=== PATIENT | female | born 1950 | race African-American/Black ===

== ENCOUNTER 2016-05-29 16:40 | Inpatient (IN) | payer BC ==
[~2016-05-29] VITALS: Ht 165.1 cm; Wt 61.2 kg
[~2016-05-29 16:40] MED LIST: AMLODIPINE BESY10 MG ORAL; AMMONIA; ASPIR 8181 MG ORAL; CATAPRES0.1 MG ORAL; CIPRO500 MG PO; DOCUSATE SODIU100 MG ORAL; FLAGYL500 MG ORAL; IRON18 M1 PO; KEPPRA500 MG ORAL; LACTULOSE10 GM/154 PO; LACTULOSE10 GM/155 PO; LEVETIRACETAM500 MG ORAL; LEVOFLOXACIN500 MG ORAL; NITROSTAT0.4 M1 SL; SUCRALFATE1 GM ORAL; TEMAZEPAM15 MG ORAL; XIFAXAN550 MG ORAL; ZANTAC150 MG ORAL; ZOFRAN4 M3 ORAL
[2016-05-29 18:00] VITALS: BP 148/72
[2016-05-29 18:25] LABS: MEAN CORPUSCULAR HEMOGLOBIN 38.8 PG (27.0-31.0); MEAN CORPUSCULAR HGB CONC 33.2 G/DL (32.0-36.0); MEAN CORPUSCULAR VOLUME 117 FL (80-99); MEAN PLATELET VOLUME 12.5 FL (6.5-10.1); PLATELET COUNT 10 K/UL (150-450); RED BLOOD COUNT 1.66 M/UL (4.20-5.40); WHITE BLOOD COUNT 3.6 K/UL (4.8-10.8)
[2016-05-29 18:35] LABS: INR 1.1 (0.9-1.1); PROTHROMBIN TIME 11.4 SEC (9.30-11.50)
[2016-05-29 18:36] LABS: TROPONIN I < 0.30 ng/mL (<=0.30)
[2016-05-29 18:59] LABS: ALANINE AMINOTRANSFERASE 18 U/L (3-33); ALBUMIN/GLOBULIN RATIO 1.1 (1.0-2.7); ANION GAP 19 (5-15); ASPARTATE AMINO TRANSFERASE 31 U/L (5-40); CALCIUM 9.2 mg/dL (8.6-10.2); CARBON DIOXIDE 22 mEQ/L (20-30); CHLORIDE 97 mEQ/L (98-107); CREATININE 0.9 mg/dL (0.5-0.9); GLOMERULAR FILTRATION RATE > 60 mL/min (>60); HEMOLYSIS 8; POTASSIUM 3.9 mEQ/L (3.4-4.9); SODIUM 138 mEQ/L (135-145); TOTAL PROTEIN 7.3 g/dL (6.6-8.7)
[2016-05-29 20:33] LABS: LYMPHOCYTES % (MANUAL) 78 % (20-45); NEUTROPHILS % (MANUAL) 20 % (45-75); TOTAL CELLS COUNTED 100
[2016-05-29 20:34] LABS: ANISOCYTOSIS 2+; MACROCYTES 2+; POLYCHROMASIA 1+
[2016-05-29 20:38] LABS: BAND NEUTROPHILS % (MANUAL) 0 % (0-8); BASOPHILS % (MANUAL) 0 % (0-2); EOSINOPHILS % (MANUAL) 0 % (0-3); PLATELET ESTIMATE DECREASED
[2016-05-29] MEDS ORDERED: LORazepam Inj 2mg/ml 1ml IV PRN (22:00)
[2016-05-29] MEDS ORDERED: Miralax 17gm pkt ORAL PRN (22:00)
[2016-05-29] MEDS ORDERED: Mylanta II UD 30ml ORAL PRN (22:00)
[2016-05-29] MEDS ORDERED: Zolpidem 5mg tab ORAL PRN (22:00)
--- NOTE | 2016-05-29 22:07 | Emergency Room Report ---
History of Present Illness General Chief Complaint: General Complaint Source: Patient Present Illness HPI 66-year-old female presents to ED for evaluation. Patient referred here by oncologist Dr. Up for pancytopenia. Patient is being treated for breast cancer with chemotherapy. Patient had blood work done today at the office which stated that she is pancytopenia. Patient states she feels okay. Denies any fevers or chills. Denies any weakness. No other aggravating or relieving factors. Denies any other associated symptoms Allergies: Coded Allergies: CITRUS AND DERIVATIVES (Verified Allergy, Intermediate, Hives, 07/18/15) Patient History Past Medical History: HTN, CVA/TIA, other - breast ca Past Surgical History: none Pertinent Family History: none Social History: Denies: alcohol use, drug use, smoking Now: No Immunizations: UTD Reviewed Nursing Documentation: PMH: Agreed, PSxH: Agreed Nursing Documentation-PMH Hx Cardiac Problems: Yes Hx Hypertension: Yes Hx Pacemaker: No Hx Asthma: No Hx COPD: No Hx Diabetes: No Hx Cancer: Yes - breast Hx Gastrointestinal Problems: No Hx Dialysis: No Hx Neurological Problems: Yes Hx Cerebrovascular Accident: Yes - 2014 Hx Seizures: Yes Hx Headaches: Yes Review of Systems All Other Systems: negative except mentioned in HPI Physical Exam Vital Signs Date Time Temp Pulse Resp B/P Pulse Ox O2 Delivery O2 Flow Rate FiO2 05/29/16 16:54 98.4 87 14 148/72 100 Sp02 EP Interpretation: reviewed, normal General Appearance: no apparent distress, alert, GCS 15, non-toxic Head: normocephalic, atraumatic Eyes: bilateral eye PERRL, bilateral eye normal inspection ENT: hearing grossly normal, normal pharynx, no angioedema, normal voice Neck: full range of motion, supple/symm/no masses Respiratory: chest non-tender, lungs clear, normal breath sounds, speaking full sentences Cardiovascular #1: regular rate, rhythm, no edema Cardiovascular #2: 2+ carotid (R), 2+ carotid (L), 2+ radial (R), 2+ radial (L) , 2+ dorsalis pedis (R), 2+ dorsalis pedis (L) Gastrointestinal: normal bowel sounds, non tender, soft, non-distended, no guarding, no rebound Rectal: deferred Genitourinary: normal inspection, no CVA tenderness Musculoskeletal: back normal, gait/station normal, normal range of motion, non- tender Neurologic: alert, oriented x3, responsive, motor strength/tone normal, sensory intact, speech normal Psychiatric: judgement/insight normal, memory normal, mood/affect normal, no suicidal/homicidal ideation Reflexes: 3+ bicep (R), 3+ bicep (L), 3+ tricep (R), 3+ tricep (L), 3+ knee (R) , 3+ knee (L) Skin: normal color, no rash, warm/dry, well hydrated Lymphatic: no adenopathy Medical Decision Making Diagnostic Impression: Primary Impression: Pancytopenia due to antineoplastic chemotherapy Additional Impression: Breast cancer Qualified Codes: C50.919 - Malignant neoplasm of unspecified site of unspecified female breast ER Course Hospital Course 66-year-old female presents to ED for evaluation. Lab work from oncologist shows pancytopenia Differential diagnoses include: anemia requiring transfusion, microcytic anemia , macrocytic anemia, heavy blood loss Clinical course Patient placed on stretcher. After initial history and physical I ordered labs including CBC and type and screen. Labs- WBC 3.6, hemoglobin/hematocrit 6.4/19.4, platelets 10. Electrolytes okay , no leukocytosis No signs of bleeding. Patient is awake alert oriented x3. Vital stable I ordered PRBCs and platelet transfusions. Case discussed with PMD Dr. Nash and will be admitted. Dr Up will consult Diagnosis - pancytopenia Admitted to floor in serious condition Labs Test 05/29/16 17:40 White Blood Count 3.6 K/UL (4.8-10.8) Red Blood Count 1.66 M/UL (4.20-5.40) Hemoglobin 6.4 G/DL (12.0-16.0) Hematocrit 19.4 % (37.0-47.0) Mean Corpuscular Volume 117 FL (80-99) Mean Corpuscular Hemoglobin 38.8 PG (27.0-31.0) Mean Corpuscular Hemoglobin Concent 33.2 G/DL (32.0-36.0) Red Cell Distribution Width 15.0 % (11.6-14.8) Platelet Count 10 K/UL (150-450) Mean Platelet Volume 12.5 FL (6.5-10.1) Neutrophils (%) (Auto) % (45.0-75.0) Lymphocytes (%) (Auto) % (20.0-45.0) Monocytes (%) (Auto) % (1.0-10.0) Eosinophils (%) (Auto) % (0.0-3.0) Basophils (%) (Auto) % (0.0-2.0) Differential Total Cells Counted 100 Neutrophils % (Manual) 20 % (45-75) Lymphocytes % (Manual) 78 % (20-45) Monocytes % (Manual) 2 % (1-10) Eosinophils % (Manual) 0 % (0-3) Basophils % (Manual) 0 % (0-2) Band Neutrophils 0 % (0-8) Platelet Estimate Decreased Platelet Morphology Giant Platelets Occasional Polychromasia 1+ Anisocytosis 2+ Macrocytosis 2+ Prothrombin Time 11.4 SEC (9.30-11.50) Prothromb Time International Ratio 1.1 (0.9-1.1) Activated Partial Thromboplast Time 31 SEC (23-33) Sodium Level 138 mEQ/L (135-145) Potassium Level 3.9 mEQ/L (3.4-4.9) Chloride Level 97 mEQ/L (98-107) Carbon Dioxide Level 22 mEQ/L (20-30) Anion Gap 19 (5-15) Blood Urea Nitrogen 12 mg/dL (7-23) Creatinine 0.9 mg/dL (0.5-0.9) Estimat Glomerular Filtration Rate > 60 mL/min (>60) Glucose Level 159 mg/dL (74-106) Calcium Level 9.2 mg/dL (8.6-10.2) Total Bilirubin 0.4 mg/dL (0.0-1.2) Aspartate Amino Transf (AST/SGOT) 31 U/L (5-40) Alanine Aminotransferase (ALT/SGPT) 18 U/L (3-33) Alkaline Phosphatase 49 U/L (35-104) Troponin I < 0.30 ng/mL (<=0.30) Total Protein 7.3 g/dL (6.6-8.7) Albumin 3.9 g/dL (3.5-5.2) Globulin 3.4 g/dL Albumin/Globulin Ratio 1.1 (1.0-2.7) Last Vital Signs Date Time Temp Pulse Resp B/P Pulse Ox O2 Delivery O2 Flow Rate FiO2 05/29/16 18:00 98.4 87 14 148/72 100 Status: improved Disposition: ADMITTED INPATIENT Condition: Serious Referrals: ARABELLA [facility],REFERRING (PCP) ARLETH LINDO M.D. May 29, 2016 22:07
[2016-05-29 22:15] VITALS: BP 165/71
[2016-05-29 22:30] VITALS: BP 171/74
[2016-05-29 23:30] VITALS: BP 149/75
[2016-05-29 23:48] VITALS: BP 149/75
[2016-05-30 04:00] VITALS: BP 161/82
[2016-05-30 08:00] VITALS: BP 155/87
[2016-05-30 11:59] VITALS: BP 155/78
[2016-05-30 12:16] LABS: MEAN CORPUSCULAR HEMOGLOBIN 37.1 PG (27.0-31.0); MEAN CORPUSCULAR HGB CONC 36.3 G/DL (32.0-36.0); MEAN CORPUSCULAR VOLUME 102 FL (80-99); MEAN PLATELET VOLUME 14.8 FL (6.5-10.1); RED BLOOD COUNT 2.28 M/UL (4.20-5.40); RED CELL DISTRIBUTION WIDTH 18.4 % (11.6-14.8); WHITE BLOOD COUNT 5.6 K/UL (4.8-10.8)
[2016-05-30 12:18] LABS: PLATELET COUNT 6 K/UL (150-450)
[2016-05-30 12:19] LABS: INR 1.1 (0.9-1.1); PROTHROMBIN TIME 11.5 SEC (9.30-11.50)
[2016-05-30 12:25] LABS: ALANINE AMINOTRANSFERASE 15 U/L (3-33); ALBUMIN/GLOBULIN RATIO 1.1 (1.0-2.7); ANION GAP 11 (5-15); ASPARTATE AMINO TRANSFERASE 26 U/L (5-40); CARBON DIOXIDE 27 mEQ/L (20-30); CHLORIDE 102 mEQ/L (98-107); CREATININE 0.7 mg/dL (0.5-0.9); GLOMERULAR FILTRATION RATE > 60 mL/min (>60); LACTATE DEHYDROGENASE 341 U/L (135-230); POTASSIUM 3.9 mEQ/L (3.4-4.9); SODIUM 140 mEQ/L (135-145); TOTAL PROTEIN 6.4 g/dL (6.6-8.7)
[2016-05-30 12:47] LABS: BILIRUBIN,DIRECT 0.2 mg/dL (0.1-0.3)
[2016-05-30 12:54] LABS: HEMOLYSIS 10; IRON 275 ug/dL (37-145)
[2016-05-30 13:34] LABS: ERYTHROCYTE SEDIMENTATION RATE 69 MM/HR (0-30)
[2016-05-30 13:52] LABS: ANISOCYTOSIS 1+; BAND NEUTROPHILS % (MANUAL) 4 % (0-8); BASOPHILS % (MANUAL) 0 % (0-2); EOSINOPHILS % (MANUAL) 0 % (0-3); LYMPHOCYTES % (MANUAL) 23 % (20-45); MACROCYTES 1+; NEUTROPHILS % (MANUAL) 70 % (45-75); PLATELET ESTIMATE DECREASED; TOTAL CELLS COUNTED 100
[2016-05-30 13:53] LABS: HYPOCHROMASIA 1+; PLATELET MORPHOLOGY NORMAL
[2016-05-30 14:06] LABS: PATH BLOOD SMEAR/OMC SENT TO PATHOLOGIST; RETICULOCYTE COUNT 0.2 % (0.0-2.0)
[2016-05-30 16:00] VITALS: BP 156/82
[2016-05-30] MEDS: Morphine Sulfate 2mg/ml Inj IVP PRN (16:27)
--- NOTE | 2016-05-30 17:15 | History and Physical ---
History of Present Illness General Date patient seen: May 30, 2016 Reason for Hospitalization: General Complaint Present Illness HPI 66 yo female with pmhx TIA/CVA and breast cancer on chemotherapy, presenting to [facility] ER with complaints of severe weakness. 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 Patient has been admitted to the hospital and PRBC transfusion is on standby if the patients hematocrit drops lower than 8 g/dL. Allergies: Coded Allergies: CITRUS AND DERIVATIVES (Verified Allergy, Intermediate, Hives, 07/18/15) Medication History Scheduled Amlodipine Besylate* (Amlodipine Besylate*), 10 MG ORAL DAILY, (Reported) Aspirin* (Aspir 81*), 81 MG ORAL DAILY, (Reported) Clonidine Hcl* (Catapres*), 0.1 MG ORAL DAILY, (Reported) Levetiracetam* (Levetiracetam*), 500 MG ORAL TWICE A DAY, (Reported) Sucralfate* (Carafate*), 1 GM ORAL TID, (Reported) Patient History Healthcare decision maker Resuscitation status Full Code Advanced Directive on File No Past Medical/Surgical History Past Medical/Surgical History: (1) Head injury, acute (2) Laceration of hand (3) Colon polyps (4) Elevated LFTs (5) Seizure disorder (6) Breast cancer (7) Pancytopenia due to antineoplastic chemotherapy (8) Multiple injuries due to trauma (9) Anemia (10) Seizure Review of Systems Constitutional: Reports: malaise, weakness Skin: Reports: dryness Physical Exam General Appearance: no apparent distress Lines, tubes and drains: peripheral HEENT: normocephalic, atraumatic, anicteric, PERRL Neck: non-tender, normal alignment, supple Respiratory/Chest: chest wall non-tender, lungs clear, normal breath sounds, no respiratory distress Breasts: no masses Cardiovascular/Chest: normal peripheral pulses, normal rate, regular rhythm, no JVD Abdomen: normal bowel sounds, non tender, soft, no organomegaly Genitourinary/Rectal: normal genital exam, normal rectal exam Extremities: normal range of motion, non-tender, normal inspection, no calf tenderness Skin Exam: palled 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, responsive, motor weakness, disoriented Last 24 Hour Vital Signs Date Time Temp Pulse Resp B/P Pulse Ox O2 Delivery O2 Flow Rate FiO2 05/30/16 16:00 98.1 92 17 156/82 96 Room Air 05/30/16 11:59 97.7 87 19 155/78 98 Room Air 05/30/16 08:00 98.1 85 19 155/87 97 Room Air 05/30/16 04:00 98.4 93 18 161/82 98 Room Air 05/29/16 23:49 94 20 149/75 100 Room Air 05/29/16 23:48 97.3 94 20 149/75 100 Room Air 05/29/16 23:30 97.3 94 20 149/75 100 Room Air 05/29/16 22:30 98.2 85 16 171/74 100 Room Air 05/29/16 22:15 98.1 84 19 165/71 95 Room Air 05/29/16 18:00 98.4 87 14 148/72 100 Intake and Output 05/29/16 05/30/16 19:00 07:00 Intake Total 560 ml Balance 560 ml Intake Oral 210 ml Blood Product 250 ml Other 100 ml # Voids 2 Laboratory Tests Test 05/29/16 17:40 05/30/16 11:35 White Blood Count 3.6 K/UL (4.8-10.8) L 5.6 K/UL (4.8-10.8) # Red Blood Count 1.66 M/UL (4.20-5.40) L 2.28 M/UL (4.20-5.40) L Hemoglobin 6.4 G/DL (12.0-16.0) *L 8.5 G/DL (12.0-16.0) #L Hematocrit 19.4 % (37.0-47.0) L 23.3 % (37.0-47.0) L Mean Corpuscular Volume 117 FL (80-99) H 102 FL (80-99) #H Mean Corpuscular Hemoglobin 38.8 PG (27.0-31.0) H 37.1 PG (27.0-31.0) H Mean Corpuscular Hemoglobin Concent 33.2 G/DL (32.0-36.0) 36.3 G/DL (32.0-36.0) H Red Cell Distribution Width 15.0 % (11.6-14.8) H 18.4 % (11.6-14.8) H Platelet Count 10 K/UL (150-450) L 6 K/UL (150-450) *L Mean Platelet Volume 12.5 FL (6.5-10.1) H 14.8 FL (6.5-10.1) H Neutrophils (%) (Auto) % (45.0-75.0) % (45.0-75.0) Lymphocytes (%) (Auto) % (20.0-45.0) % (20.0-45.0) Monocytes (%) (Auto) % (1.0-10.0) % (1.0-10.0) Eosinophils (%) (Auto) % (0.0-3.0) % (0.0-3.0) Basophils (%) (Auto) % (0.0-2.0) % (0.0-2.0) Differential Total Cells Counted 100 100 Neutrophils % (Manual) 20 % (45-75) L 70 % (45-75) Lymphocytes % (Manual) 78 % (20-45) H 23 % (20-45) Monocytes % (Manual) 2 % (1-10) 3 % (1-10) Eosinophils % (Manual) 0 % (0-3) 0 % (0-3) Basophils % (Manual) 0 % (0-2) 0 % (0-2) Band Neutrophils 0 % (0-8) 4 % (0-8) Platelet Estimate Decreased L Decreased L Platelet Morphology Normal Giant Platelets Occasional Polychromasia 1+ Anisocytosis 2+ 1+ Macrocytosis 2+ 1+ Prothrombin Time 11.4 SEC (9.30-11.50) 11.5 SEC (9.30-11.50) Prothromb Time International Ratio 1.1 (0.9-1.1) 1.1 (0.9-1.1) Activated Partial Thromboplast Time 31 SEC (23-33) 23 SEC (23-33) Sodium Level 138 mEQ/L (135-145) 140 mEQ/L (135-145) Potassium Level 3.9 mEQ/L (3.4-4.9) 3.9 mEQ/L (3.4-4.9) Chloride Level 97 mEQ/L (98-107) L 102 mEQ/L (98-107) Carbon Dioxide Level 22 mEQ/L (20-30) 27 mEQ/L (20-30) Anion Gap 19 (5-15) H 11 (5-15) Blood Urea Nitrogen 12 mg/dL (7-23) 7 mg/dL (7-23) Creatinine 0.9 mg/dL (0.5-0.9) 0.7 mg/dL (0.5-0.9) Estimat Glomerular Filtration Rate > 60 mL/min (>60) > 60 mL/min (>60) Glucose Level 159 mg/dL (74-106) H 122 mg/dL (74-106) H Calcium Level 9.2 mg/dL (8.6-10.2) 9.0 mg/dL (8.6-10.2) Total Bilirubin 0.4 mg/dL (0.0-1.2) 1.1 mg/dL (0.0-1.2) Aspartate Amino Transf (AST/SGOT) 31 U/L (5-40) 26 U/L (5-40) Alanine Aminotransferase (ALT/SGPT) 18 U/L (3-33) 15 U/L (3-33) Alkaline Phosphatase 49 U/L (35-104) 49 U/L (35-104) Troponin I < 0.30 ng/mL (<=0.30) Total Protein 7.3 g/dL (6.6-8.7) 6.4 g/dL (6.6-8.7) L Albumin 3.9 g/dL (3.5-5.2) 3.4 g/dL (3.5-5.2) L Globulin 3.4 g/dL 3.0 g/dL Albumin/Globulin Ratio 1.1 (1.0-2.7) 1.1 (1.0-2.7) Hypochromasia 1+ Erythrocyte Sedimentation Rate 69 MM/HR (0-30) H Reticulocyte Count 0.2 % (0.0-2.0) Iron Level 275 ug/dL (37-145) H Total Iron Binding Capacity ug/dL (250-400) Percent Iron Saturation % (15-50) Unsaturated Iron Binding ug/dL (112-346) Direct Bilirubin 0.2 mg/dL (0.1-0.3) Lactate Dehydrogenase 341 U/L (135-230) H Carcinoembryonic Antigen 2.7 ng/mL Vitamin B12 Level 775 pg/mL (211-946) Folate Pending Thyroid Stimulating Hormone (TSH) 1.880 uIU/mL (0.300-4.500) Height (Feet): 5 Height (Inches): 5.00 Weight (Pounds): 135 Medications Current Medications Medications (Trade) Dose Ordered Sig/Rancho Route PRN Reason Start Time Stop Time Status Last Admin Dose Admin Acetaminophen (Tylenol) 650 mg Q4H PRN ORAL fever 05/29/16 22:00 06/28/16 21:59 Al Hydroxide/Mg Hydroxide (Mylanta II) 30 ml Q6H PRN ORAL dyspepsia 05/29/16 22:00 06/28/16 21:59 Dextrose (Dextrose 50%) STAT PRN IV Hypoglycemia 05/29/16 22:00 06/28/16 21:59 Lorazepam (Ativan 2mg/ml 1ml) 0.5 mg Q4H PRN IV For Anxiety 05/29/16 22:00 06/05/16 21:59 Morphine Sulfate (Morphine Sulfate) 1 mg Q4H PRN IVP For Pain 05/29/16 22:00 06/05/16 21:59 05/30/16 16:27 Ondansetron HCl (Zofran) 4 mg Q6H PRN IVP Nausea & Vomiting 05/29/16 22:00 06/28/16 21:59 Polyethylene Glycol (Miralax) 17 gm HSPRN PRN ORAL Constipation 05/29/16 22:00 06/28/16 21:59 Zolpidem Tartrate (Ambien) 5 mg HSPRN PRN ORAL Insomnia 05/29/16 22:00 06/28/16 21:59 Assessment/Plan Status: stable, progressing Assessment/Plan Assessment/Plan Assessment/Plan ASSESSMENT pancytopenia 2 to chemotherapy metastatic breast cancer, on chemotherapy s/p 2 u PRBC transfusion HTN Hx of CVA seizure disorder PLAN OF CARE s/p 2 u PRBC Monitor platelets and H/H Hematology rdquested anemia workup with high iron and ferritin, normal B 12 and folate TSH DELLA SNELL May 30, 2016 17:15
[2016-05-30] MEDS ORDERED: Tubing Blood Filter IV ONE (17:26)
[2016-05-30] MEDS ORDERED: NS 275ml ONE (17:26)
[2016-05-30 20:00] VITALS: BP 155/76
[2016-05-31] VITALS: BP 158/80
[2016-05-31] MEDS: Morphine Sulfate 2mg/ml Inj IVP PRN (00:09)
[2016-05-31 04:00] VITALS: BP 142/73
--- NOTE | 2016-05-31 06:57 | Consultation ---
DATE OF CONSULTATION: 05/30/2016 NOTE: POOR AUDIO HEMATOLOGY/ONCOLOGY CONSULTATION: REQUESTING PHYSICIAN: Swati Nash M.D. REASON FOR CONSULTATION: Evaluation of severe thrombocytopenia. IDENTIFICATION: Dear Dr. Swati Nash, The patient is a pleasant 66-year-old female with past medical history significant for breast cancer status post chemotherapy. Her tumor has improved initiation of chemotherapy. She is getting carbapenem . She has been getting decreased dose of chemotherapy, however, at this time, she could not come to the office with pancytopenia and therefore, she was sent to the ER for further evaluation given her severe thrombocytopenia as well as anemia and leukopenia. She received antibiotics as well as fluids which was decreased to 10,000 currently to 6,000. Hematology service was consulted for further evaluation and treatment. PAST MEDICAL HISTORY: Breast cancer metastatic hypertension. PAST SURGICAL HISTORY: None noted. Breast biopsy. ALLERGIES: SOCIAL HISTORY: No alcohol, tobacco, or illicit drug use. FAMILY HISTORY: Noncontributory . REVIEW OF SYSTEMS: Constitutional: No fever, chills, or night sweats. Skin: No rashes, lumps, or itching. HEENT: No headache or vision changes. Breasts: No lumps, pain, or discharge. Pulmonary: No cough, sputum, or shortness of breath. Cardiovascular: No chest pain, tightness, or palpitations. Gastrointestinal: No nausea, vomiting, or diarrhea. : No dysuria, frequency, or urgency. Musculoskeletal: No joint swelling, muscle pain, or trauma. Neurologic: . PHYSICAL EXAMINATION: GENERAL: The patient is in no acute distress. VITAL SIGNS: Temperature 97.7 degrees Fahrenheit , pulse 82, respiratory rate 12, blood pressure 154/76, and pulse oximetry 98% on room air. PULMONARY: Decreased breath sounds. CARDIOVASCULAR: Regular rate and rhythm. No S3 or S4. ABDOMEN: Soft, nontender, and nondistended. EXTREMITIES: A 1+ edema. LABORATORY DATA: WBC 5.6, hemoglobin 10, hematocrit 23, MCV 102, platelet count 6,000. . also pending Imaging 02:48 duplex of the lower extremities performed no evidence of DVT . ASSESSMENT: 1. Severe thrombocytopenia. 2. Severe pancytopenia. 3. Recent administration of chemotherapy with in the future we will need dose reduced. 4. 04:02 5. Hypertension. 6. History of stroke. 7. Metastatic breast cancer currently is on chemotherapy as an outpatient . 8. History of seizures and headache. 9. History of weakness. RECOMMENDATIONS: 1. Monitor counts. 2. Anemia workup reviewed. Pending ferritin. 3. Continue pain control . 4. The patient has been transfuse of blood and platelets. 5. Hemoglobin goal. 6. Platelets goal of above 10,000. The patient transfused the blood today. 7. Peripheral smear 8. The patient shows at this time no evidence of hemolysis. 9. Monitor kidney. 10. Monitor renal function. 11. Follow up Pulmonary Critical Care. Thank you, Dr. Swati Nash, for this kind referral. Please do not hesitate to contact me if you have any further questions. Sp Up M.D. DR: Jenn JOB#: [id number] CC:
[2016-05-31 06:59] LABS: INR 1.1 (0.9-1.1); PROTHROMBIN TIME 11.1 SEC (9.30-11.50)
[2016-05-31 07:23] LABS: BASOPHILS % (AUTO) 0.3 % (0.0-2.0); EOSINOPHILS % (AUTO) 0.4 % (0.0-3.0); LYMPHOCYTES % (AUTO) 36.5 % (20.0-45.0); MEAN CORPUSCULAR HEMOGLOBIN 37.3 PG (27.0-31.0); MEAN CORPUSCULAR HGB CONC 35.7 G/DL (32.0-36.0); MEAN CORPUSCULAR VOLUME 104 FL (80-99); MEAN PLATELET VOLUME 6.7 FL (6.5-10.1); MONOCYTES % (AUTO) 4.8 % (1.0-10.0); NEUTROPHILS % (AUTO) 57.9 % (45.0-75.0); PLATELET COUNT 104 K/UL (150-450); RED BLOOD COUNT 2.29 M/UL (4.20-5.40); RED CELL DISTRIBUTION WIDTH 18.5 % (11.6-14.8); WHITE BLOOD COUNT 5.8 K/UL (4.8-10.8)
[2016-05-31 08:11] VITALS: BP 147/72
[2016-05-31 08:16] LABS: ALANINE AMINOTRANSFERASE 14 U/L (3-33); ANION GAP 12 (5-15); ASPARTATE AMINO TRANSFERASE 27 U/L (5-40); CALCIUM 9.3 mg/dL (8.6-10.2); CARBON DIOXIDE 28 mEQ/L (20-30); CHLORIDE 102 mEQ/L (98-107); CREATININE 0.6 mg/dL (0.5-0.9); GLOMERULAR FILTRATION RATE > 60 mL/min (>60); HEMOLYSIS 7; MAGNESIUM 1.6 mg/dL (1.7-2.5); PHOSPHORUS 3.8 mg/dL (2.5-4.8); POTASSIUM 3.6 mEQ/L (3.4-4.9); SODIUM 142 mEQ/L (135-145); TOTAL PROTEIN 6.8 g/dL (6.6-8.7)
[2016-05-31 11:35] VITALS: BP 151/70
[2016-05-31 12:34] LABS: OTHERS PATHOLOGIST COMMENT
--- NOTE | 2016-05-31 13:24 | Pulmonology Progress Note ---
Assessment/Plan Assessment/Plan ASSESSMENT pancytopenia 2 to chemotherapy metastatic breast cancer, on chemotherapy s/p 2 u PRBC transfusion HTN Hx of CVA seizure disorder PLAN OF CARE MS floor s/p 2 u PRBC HH stable, no further trend down PLT up heme follows anemia workup with high iron and ferritin, normal B 12 and folate TSH WNL Venous Duplex BLE negative BS stable pain management Bowel regimen Counts were clsoely monitored heme cleared for discharge continue outpt chemo as per oncologist dc today case discussed and evaluated by supervising physician Subjective Allergies: Coded Allergies: CITRUS AND DERIVATIVES (Verified Allergy, Intermediate, Hives, 07/18/15) Subjective HH stable, PLT up feeling better no SOB, no chest pain Objective Last 24 Hour Vital Signs Date Time Temp Pulse Resp B/P Pulse Ox O2 Delivery O2 Flow Rate FiO2 05/31/16 11:35 97.7 85 20 151/70 99 Room Air 05/31/16 08:11 98.2 81 20 147/72 98 Room Air 05/31/16 04:00 97.6 80 18 142/73 96 Room Air 05/31/16 00:00 97.8 82 18 158/80 97 Room Air 05/30/16 20:00 97.7 83 20 155/76 98 Room Air 05/30/16 16:00 98.1 92 17 156/82 96 Room Air Intake and Output 05/30/16 05/31/16 19:00 07:00 Intake Total 480 ml 635 ml Output Total 300 ml Balance 480 ml 335 ml Intake Oral 480 ml 635 ml Output Urine Total 300 ml # Voids 4 5 # Bowel Movements 2 General Appearance: no acute distress HEENT: normocephalic, atraumatic, mucous membranes moist Respiratory/Chest: no respiratory distress, no accessory muscle use, decreased breath sounds Cardiovascular: normal peripheral pulses, normal rate, regular rhythm, no JVD Abdomen: normal bowel sounds, soft, non tender, non distended Genitourinary: normal external genitalia Extremities: pedal pulses normal, other - tarce edema BLE Neurologic/Psychiatric: alert, oriented x 3, responsive Musculoskeletal: normal muscle bulk Laboratory Tests 05/31/16 04:00: White Blood Count 5.8, Red Blood Count 2.29L, Hemoglobin 8.5L, Hematocrit 23.9L , Mean Corpuscular Volume 104H, Mean Corpuscular Hemoglobin 37.3H, Mean Corpuscular Hemoglobin Concent 35.7, Red Cell Distribution Width 18.5H, Platelet Count 104#L, Mean Platelet Volume 6.7, Neutrophils (%) (Auto) 57.9, Lymphocytes (%) (Auto) 36.5, Monocytes (%) (Auto) 4.8, Eosinophils (%) (Auto) 0.4, Basophils (%) (Auto) 0.3, Prothrombin Time 11.1, Prothromb Time International Ratio 1.1, Activated Partial Thromboplast Time 26, Sodium Level 142, Potassium Level 3.6, Chloride Level 102, Carbon Dioxide Level 28, Anion Gap 12, Blood Urea Nitrogen 9, Creatinine 0.6, Estimat Glomerular Filtration Rate > 60, Glucose Level 89, Calcium Level 9.3, Phosphorus Level 3.8, Magnesium Level 1.6L, Total Bilirubin 0.8, Aspartate Amino Transf (AST/SGOT) 27, Alanine Aminotransferase (ALT/SGPT) 14, Alkaline Phosphatase 63, Total Protein 6.8, Albumin 3.5, Globulin 3.3, Albumin/Globulin Ratio 1.0 Current Medications Medications (Trade) Dose Ordered Sig/Rancho Route PRN Reason Start Time Stop Time Status Last Admin Dose Admin Acetaminophen (Tylenol) 650 mg Q4H PRN ORAL fever 05/29/16 22:00 06/28/16 21:59 Al Hydroxide/Mg Hydroxide (Mylanta II) 30 ml Q6H PRN ORAL dyspepsia 05/29/16 22:00 06/28/16 21:59 Dextrose (Dextrose 50%) STAT PRN IV Hypoglycemia 05/29/16 22:00 06/28/16 21:59 Lorazepam (Ativan 2mg/ml 1ml) 0.5 mg Q4H PRN IV For Anxiety 05/29/16 22:00 06/05/16 21:59 Morphine Sulfate (Morphine Sulfate) 1 mg Q4H PRN IVP For Pain 05/29/16 22:00 06/05/16 21:59 05/31/16 00:09 Ondansetron HCl (Zofran) 4 mg Q6H PRN IVP Nausea & Vomiting 05/29/16 22:00 06/28/16 21:59 Polyethylene Glycol (Miralax) 17 gm HSPRN PRN ORAL Constipation 05/29/16 22:00 3/3/17 21:59 Zolpidem Tartrate (Ambien) 5 mg HSPRN PRN ORAL Insomnia 05/29/16 22:00 06/28/16 21:59 Vikram ([facility])Shaniqua NP May 31, 2016 13:24
--- NOTE | 2016-05-31 13:25 | Discharge Instructions ---
Discharge Instructions Discharge Instructions Follow up with: heme Call MD/Return to Hospital if: fever, SOB, palpitations, cehst pain Diet: regular - toelrated Activity: resume normal activities, as tolerated For Congestive Heart Failure Reminder Report to your physician any weight gain of 5 pounds or more in one week. Vikram ([facility])Shaniqua NP May 31, 2016 13:25
--- NOTE | 2016-05-31 13:30 | Discharge Summary ---
Discharge Summary Hospital Course Date of Admission May 29, 2016 at 17:40 Date of Discharge Admitting Diagnosis pancyctopenia HPI Patti Cantrell is a 66 year old female who was admitted on May 29, 2016 at 17:40 for Pancytopenia Hospital Course dc summary dictated # [id number] Discharge Medications Continued Medications: Amlodipine Besylate* (Amlodipine Besylate*) 10 Mg Tablet 10 MG ORAL DAILY, TAB Clonidine Hcl* (Catapres*) 0.1 Mg Tablet 0.1 MG ORAL DAILY, TAB Levetiracetam* (Levetiracetam*) 500 Mg Tablet 500 MG ORAL TWICE A DAY Sucralfate* (Carafate*) 1 Gm Tablet 1 GM ORAL TID, TAB Discharge Condition Upon Discharge: improving, stable Discharge Disposition Patient was discharged to home Discharge Diagnoses: Discharge Instructions Discharge Instructions Follow up with: heme Call MD/Return to Hospital if: fever, SOB, palpitations, cehst pain Activity: resume normal activities, as tolerated Shaniqua Sue NP ([facility]) May 31, 2016 13:30
--- NOTE | 2016-05-31 15:34 | General Progress Note ---
Assessment/Plan Assessment/Plan ASSESSMENT: 1. Severe thrombocytopenia. is s/p transfusion and has improved >100k, is stable from our end hematology for d/c 2. Severe pancytopenia. 3. Recent administration of chemotherapy withgemzar this week and in future dose reduce 4. s/p chemotherapy 5. Hypertension. 6. History of stroke. 7. Metastatic breast cancer currently is on chemotherapy as an outpatient . 8. History of seizures and headache. 9. History of weakness. RECOMMENDATIONS: 1. Monitor counts. 2. Anemia workup reviewed.Ferritin >1700 3. Continue pain control . 4. The patient has been transfuse of blood and platelets. 5. Hemoglobin goal. 6. Platelets goal of above 10,000 7. Peripheral smear reviewed 8. Stable for discharge from our end 9. Monitor kidney. 10. Monitor renal function. 11. Follow up Pulmonary Critical Care. Thank you, Sp Up MD Subjective Constitutional: Reports: no symptoms HEENT: Reports: no symptoms Cardiovascular: Reports: no symptoms Respiratory: Reports: no symptoms Genitourinary: Reports: no symptoms Neurologic/Psychiatric: Reports: no symptoms Endocrine: Reports: no symptoms Hematologic/Lymphatic: Reports: anemia Allergies: Coded Allergies: CITRUS AND DERIVATIVES (Verified Allergy, Intermediate, Hives, 07/18/15) Objective Last 24 Hour Vital Signs Date Time Temp Pulse Resp B/P Pulse Ox O2 Delivery O2 Flow Rate FiO2 05/31/16 11:35 97.7 85 20 151/70 99 Room Air 05/31/16 08:11 98.2 81 20 147/72 98 Room Air 05/31/16 04:00 97.6 80 18 142/73 96 Room Air 05/31/16 00:00 97.8 82 18 158/80 97 Room Air 05/30/16 20:00 97.7 83 20 155/76 98 Room Air 05/30/16 16:00 98.1 92 17 156/82 96 Room Air Intake and Output 05/30/16 05/31/16 19:00 07:00 Intake Total 480 ml 635 ml Output Total 300 ml Balance 480 ml 335 ml Intake Oral 480 ml 635 ml Output Urine Total 300 ml # Voids 4 5 # Bowel Movements 2 Laboratory Tests 05/31/16 04:00: White Blood Count 5.8, Red Blood Count 2.29L, Hemoglobin 8.5L, Hematocrit 23.9L , Mean Corpuscular Volume 104H, Mean Corpuscular Hemoglobin 37.3H, Mean Corpuscular Hemoglobin Concent 35.7, Red Cell Distribution Width 18.5H, Platelet Count 104#L, Mean Platelet Volume 6.7, Neutrophils (%) (Auto) 57.9, Lymphocytes (%) (Auto) 36.5, Monocytes (%) (Auto) 4.8, Eosinophils (%) (Auto) 0.4, Basophils (%) (Auto) 0.3, Prothrombin Time 11.1, Prothromb Time International Ratio 1.1, Activated Partial Thromboplast Time 26, Sodium Level 142, Potassium Level 3.6, Chloride Level 102, Carbon Dioxide Level 28, Anion Gap 12, Blood Urea Nitrogen 9, Creatinine 0.6, Estimat Glomerular Filtration Rate > 60, Glucose Level 89, Calcium Level 9.3, Phosphorus Level 3.8, Magnesium Level 1.6L, Total Bilirubin 0.8, Aspartate Amino Transf (AST/SGOT) 27, Alanine Aminotransferase (ALT/SGPT) 14, Alkaline Phosphatase 63, Total Protein 6.8, Albumin 3.5, Globulin 3.3, Albumin/Globulin Ratio 1.0 Height (Feet): 5 Height (Inches): 5.00 Weight (Pounds): 135 General Appearance: no apparent distress EENT: TMs normal Neck: non-tender Cardiovascular: normal rate Respiratory/Chest: normal breath sounds Abdomen: no organomegaly Extremities: non-tender Edema: 1+ Leg (L), 1+ Leg (R) Edema: mild edema Neurologic: alert Skin: warm/dry Sp Up May 31, 2016 15:34
[2016-05-31 15:47] VITALS: BP 154/67
--- NOTE | 2016-06-01 02:27 | Discharge Summary 2 SIG ---
DATE OF ADMISSION: 05/29/2016 DATE OF DISCHARGE: 05/31/2016 REASON FOR ADMISSION : 66 years old female with a history of metastatic breast cancer, was sent to emergency department by her oncologist, for pancytopenia. The patient was treated with chemotherapy for breast cancer. Workup in the office revealed pancytopenia. The patient was sent to emergency department for evaluation. The patient denied fevers, chills, and any weakness. She denied chest pain. No shortness of breath. Workup in the emergency room revealed hemoglobin of 6.4, hematocrit 19.4, WBC 3.6, and platelets 15,000. Patient admitted close monitoring and blood transfusion. ADMITTING DIAGNOSIS: Acute pancytopenia due to the chemotherapy. HOSPITAL COURSE: The patient received two units of packed red blood cells Hemoglobin was 8.5 and hematocrit was 23.3 yesterday after blood transfusion. Anemia panel revealed high iron and high ferritin with normal B12 and folate. Supplemental oxygen and pulmonary toilet provided as needed. Blood pressure was managed with existing regimen and was stable. TSH was checked and was stable. Seizure precautions maintained. No seizure activity in the hospital. Continue current management of anticonvulsant. Platelets up to 104,000. Hemoglobin was same at 8.5 and hematocrit 23.9. Portfolio Consultant closely followed. Portfolio Consultant has seen the patient earlier today and cleared for discharge. The patient was stable for discharge home. DISCHARGE MEDICATIONS: See medication reconciliation list. DISCHARGE DIAGNOSES: 1. Pancytopenia secondary to chemotherapy. 2. Metastatic breast cancer, on chemotherapy. 3. Status post two units packed red blood cell transfusion. 4. Hypertension. 5. History of cerebrovascular accident. 6. Seizure disorder. DISCHARGE INSTRUCTIONS: The patient was discharged home. Follow up with the primary medical doctor and oncologist for further management. Swati Nash M.D. I have been assigned to dictate discharge summary on this account and I was not involved in the patient's management. Lamonte Gómez (Vanchtein)PKarissa DR: Cristobal JOB#: [id number] CC: ROBERT
--- NOTE | 2016-06-05 16:19 | Diagnostic Imaging Report ---
APPROVED REPORT CPT Code: 46071 Present Symptoms Comments: Pain BILATERAL: Imaging reveals a patent deep venous system bilaterally. There is no evidence of thrombus within the femoral, popliteal or tibial segments. The greater saphenous veins are also within normal limits. Doppler indicates normal spontaneous flow within these segments.
== END 2016-05-31 18:00 | disposition home or self-care (01) | DRG 809 ==
LOC: EMR 17:25 → 4W 17:40 → EDBEDREQ 22:20 → 4W 05-30 01:11
PROC: 30233N1 Transfusion of Nonautologous Red Blood Cells into Peripheral Vein, Percutaneous Approach (ICD-10-PCS; principal; 2016-05-29)
DX: D61.810 Antineoplastic chemotherapy induced pancytopenia (principal); C79.9 Secondary malignant neoplasm of unspecified site; C50.919 Malignant neoplasm of unspecified site of unspecified female breast; D69.6 Thrombocytopenia, unspecified; R56.9 Unspecified convulsions; I10 Essential (primary) hypertension; Z86.73 Personal history of transient ischemic attack (TIA), and cerebral infarction without residual deficits; Z79.899 Other long term (current) drug therapy
CPT/HCPCS: 36415; 80053; 82248; 82270; 82378; 82607; 82728; 82746; 83540; 83550; 83615; 83735; 84100; 84443; 84484; 85007; 85025; 85044; 85060; 85610; 85651; 85730; 86850; 86900; 86901; 86920; 93970

== ENCOUNTER 2016-07-04 12:33 | Inpatient (IN) | payer BC ==
[~2016-07-04] VITALS: Ht 165.1 cm; Wt 62.1 kg
--- NOTE | 2016-07-04 13:44 | Diagnostic Imaging Report ---
Indication: Chest pain Technique: One view of the chest Comparison: 07/21/2015 Findings: Left arm PICC is again demonstrated, coarse currently more tortuous.. The lungs and pleural spaces are clear. The heart size is upper limits of normal Impression: No acute process
[2016-07-04 14:05] VITALS: BP 138/67
--- NOTE | 2016-07-04 14:54 | Emergency Room Report ---
History of Present Illness General Chief Complaint: Abnormal Labs Source: Patient Present Illness HPI 66 YO F breast cancer/ oncology patient sent by oncologist for low H&H, requesting admission for transfusion. Patient has been transfused previously. Endorses weakness. Denies chest pain, SOB, abd pain, nausea/vomiting, fever/ chills. Allergies: Coded Allergies: CITRUS AND DERIVATIVES (Verified Allergy, Intermediate, Hives, 07/18/15) Patient History Past Medical History: other - breast cancer Past Surgical History: none Pertinent Family History: none Social History: Denies: alcohol use, drug use, smoking Now: No Immunizations: UTD Reviewed Nursing Documentation: PMH: Agreed, PSxH: Agreed Nursing Documentation-PMH Past Medical History: No History, Except For Hx Hypertension: Yes Hx Pacemaker: No Hx Asthma: No Hx COPD: No Hx Diabetes: No Hx Cancer: Yes - breast dx Jan 2015 Hx Gastrointestinal Problems: Yes Hx Dialysis: No Hx Neurological Problems: Yes Hx Cerebrovascular Accident: Yes - TIA Hx Seizures: Yes Hx Headaches: Yes Review of Systems All Other Systems: negative except mentioned in HPI Physical Exam Vital Signs Date Time Temp Pulse Resp B/P Pulse Ox O2 Delivery O2 Flow Rate FiO2 07/04/16 12:50 98.2 78 14 122/68 97 Room Air Sp02 EP Interpretation: reviewed, normal General Appearance: normal inspection, well appearing, no apparent distress, alert, GCS 15, non-toxic Head: normocephalic, atraumatic Eyes: bilateral eye EOMI, bilateral eye PERRL ENT: normal ENT inspection, hearing grossly normal, normal voice Neck: normal inspection, full range of motion, supple, no bony tend Respiratory: normal inspection, lungs clear, normal breath sounds, no respiratory distress, no retraction, no wheezing Cardiovascular #1: regular rate, rhythm, no edema Gastrointestinal: normal inspection, normal bowel sounds, non tender, soft, no guarding, no hernia Genitourinary: no CVA tenderness Musculoskeletal: normal inspection, back normal, normal range of motion, Cesar' s Sign negative, other - left sided functional PICC line Neurologic: normal inspection, alert, oriented x3, responsive, jig borer III-XII nml as tested, motor strength/tone normal, speech normal Psychiatric: normal inspection, judgement/insight normal, mood/affect normal Skin: normal inspection, normal color, no rash Medical Decision Making Diagnostic Impression: Primary Impression: Abnormal laboratory test result ER Course 66 YOF for blood transfusion, low H&H per oncologist. Weakness. VSS. Afebrile. Labs pending At 3pm, Endorsed to Dr Antoine to followup labs, endorse Last Vital Signs Date Time Temp Pulse Resp B/P Pulse Ox O2 Delivery O2 Flow Rate FiO2 07/04/16 14:05 78 14 138/67 99 Room Air 07/04/16 12:50 98.2 Referrals: SHARON FINN (PCP) DINO THOMAS M.D. Jul 04, 2016 14:54
[2016-07-04 16:12] LABS: TROPONIN I < 0.30 ng/mL (<=0.30)
[2016-07-04 16:13] LABS: ALANINE AMINOTRANSFERASE 15 U/L (3-33); ANION GAP 19 (5-15); ASPARTATE AMINO TRANSFERASE 40 U/L (5-40); CALCIUM 8.5 mg/dL (8.6-10.2); CARBON DIOXIDE 19 mEQ/L (20-30); CHLORIDE 98 mEQ/L (98-107); CREATININE 0.6 mg/dL (0.5-0.9); GLOMERULAR FILTRATION RATE > 60 mL/min (>60); HEMOLYSIS 34; SODIUM 136 mEQ/L (135-145); TOTAL PROTEIN 7.1 g/dL (6.6-8.7)
[2016-07-04 16:14] LABS: INR 1.2 (0.9-1.1)
[2016-07-04 16:28] VITALS: BP 132/73
[2016-07-04 18:20] LABS: MEAN CORPUSCULAR HEMOGLOBIN 39.4 PG (27.0-31.0); MEAN CORPUSCULAR HGB CONC 34.3 G/DL (32.0-36.0); MEAN CORPUSCULAR VOLUME 115 FL (80-99); PLATELET COUNT 61 K/UL (150-450); RED BLOOD COUNT 1.63 M/UL (4.20-5.40); RED CELL DISTRIBUTION WIDTH 24.1 % (11.6-14.8); WHITE BLOOD COUNT 10.3 K/UL (4.8-10.8)
[2016-07-04 18:51] VITALS: BP 146/57
[2016-07-04 19:00] VITALS: BP 133/87
[2016-07-04 19:18] LABS: BAND NEUTROPHILS % (MANUAL) 3 % (0-8); LYMPHOCYTES % (MANUAL) 7 % (20-45); NEUTROPHILS % (MANUAL) 88 % (45-75); TOTAL CELLS COUNTED 100
[2016-07-04 19:19] LABS: ANISOCYTOSIS 2+; HYPOCHROMASIA 2+; MACROCYTES 2+
[2016-07-04 19:20] LABS: BASOPHILS % (MANUAL) 0 % (0-2); EOSINOPHILS % (MANUAL) 0 % (0-3); PLATELET ESTIMATE DECREASED; PLATELET MORPHOLOGY NORMAL
[2016-07-04] MEDS ORDERED: Zolpidem 5mg tab ORAL PRN (22:00)
[2016-07-04] MEDS ORDERED: Mylanta II UD 30ml ORAL PRN (22:00)
[2016-07-04] MEDS ORDERED: Miralax 17gm pkt ORAL PRN (22:00)
[2016-07-04] MEDS ORDERED: LORazepam Inj 2mg/ml 1ml IV PRN (22:00)
[2016-07-04] MEDS ORDERED: Morphine Sulfate 2mg/ml Inj IVP PRN (22:00)
[2016-07-05] VITALS: BP 148/77
[2016-07-05 04:00] VITALS: BP 158/85
[2016-07-05 07:55] VITALS: BP 155/76
[2016-07-05] MEDS: Sucralfate 1gm tab ORAL SCH ×2 (08:52→13:00)
[2016-07-05 10:09] LABS: MEAN CORPUSCULAR HEMOGLOBIN 34.5 PG (27.0-31.0); MEAN CORPUSCULAR VOLUME 98 FL (80-99); MEAN PLATELET VOLUME 8.9 FL (6.5-10.1); PLATELET COUNT 55 K/UL (150-450); RED BLOOD COUNT 2.93 M/UL (4.20-5.40); RED CELL DISTRIBUTION WIDTH 23.6 % (11.6-14.8); WHITE BLOOD COUNT 13.2 K/UL (4.8-10.8)
[2016-07-05 10:34] LABS: ALANINE AMINOTRANSFERASE 13 U/L (3-33); ANION GAP 15 (5-15); ASPARTATE AMINO TRANSFERASE 29 U/L (5-40); CALCIUM 8.9 mg/dL (8.6-10.2); CARBON DIOXIDE 23 mEQ/L (20-30); CHLORIDE 99 mEQ/L (98-107); CREATININE 0.6 mg/dL (0.5-0.9); GLOMERULAR FILTRATION RATE > 60 mL/min (>60); INR 1.2 (0.9-1.1); LACTATE DEHYDROGENASE 557 U/L (135-230); POTASSIUM 3.6 mEQ/L (3.4-4.9); PROTHROMBIN TIME 11.9 SEC (9.30-11.50); SODIUM 137 mEQ/L (135-145); TOTAL PROTEIN 6.9 g/dL (6.6-8.7)
[2016-07-05 10:54] LABS: ANISOCYTOSIS 1+; BAND NEUTROPHILS % (MANUAL) 2 % (0-8); BASOPHILS % (MANUAL) 0 % (0-2); EOSINOPHILS % (MANUAL) 1 % (0-3); LYMPHOCYTES % (MANUAL) 9 % (20-45); NEUTROPHILS % (MANUAL) 84 % (45-75); PLATELET ESTIMATE DECREASED; PLATELET MORPHOLOGY NORMAL; POIKILOCYTOSIS 1+; TOTAL CELLS COUNTED 100
[2016-07-05 10:55] LABS: PATH BLOOD SMEAR/OMC SENT TO PATHOLOGIST
--- NOTE | 2016-07-05 10:56 | Consultation ---
Consult Note Consult Note DATE OF CONSULTATION: 07/05/16 HEMATOLOGY/ONCOLOGY CONSULTATION: REQUESTING PHYSICIAN: Swati Nash M.D. REASON FOR CONSULTATION: Evaluation of severe thrombocytopenia/anemia IDENTIFICATION: Dear Dr. Swati Nash, Mrs. Patti Cantrell is a pleasant 66-year-old female with past medical history significant for breast cancer status post chemotherapy. Her tumor has improved since initiation of chemotherapy. She is getting carbo-taxol at this time and has done very well. She has been getting decreased dose of chemotherapy, however, at this time, she came to the office on with pancytopenia and therefore, she was sent to the ER for further evaluation given her severe thrombocytopenia as well as anemia and leukopenia. She was noted in the Er to have a decreased hgb of 6.4 and hematology service was consulted for further evaluation and care. Dr. Nash consulted me for further evaluation and treatment. PAST MEDICAL HISTORY: Breast cancer metastatic, hypertension. PAST SURGICAL HISTORY: None noted. Breast biopsy. ALLERGIES: citrus and derivatives SOCIAL HISTORY: No alcohol, tobacco, or illicit drug use. FAMILY HISTORY: Noncontributory . REVIEW OF SYSTEMS: Constitutional: No fever, chills, or night sweats. Skin: No rashes, lumps, or itching. HEENT: No headache or vision changes. Breasts: No lumps, pain, or discharge. Pulmonary: No cough, sputum, or shortness of breath. Cardiovascular: No chest pain, tightness, or palpitations. Gastrointestinal: No nausea, vomiting, or diarrhea. : No dysuria, frequency, or urgency. Musculoskeletal: No joint swelling, muscle pain, or trauma. PHYSICAL EXAMINATION: GENERAL: The patient is in no acute distress. VITAL SIGNS: Last 24 Hour Vital Signs Date Time Temp Pulse Resp B/P Pulse Ox O2 Delivery O2 Flow Rate FiO2 07/05/16 08:53 155/76 07/05/16 08:52 85 155/76 07/05/16 07:55 97.0 85 14 155/76 100 Room Air 07/05/16 04:00 97.9 79 18 158/85 100 Room Air 07/05/16 00:00 98.4 90 18 148/77 98 Room Air 07/04/16 19:07 98.2 83 14 146/57 99 Room Air 07/04/16 19:00 97.7 78 18 133/87 97 Room Air 07/04/16 18:51 98.2 83 14 146/57 99 Room Air 07/04/16 16:28 98.2 90 14 132/73 99 Room Air 07/04/16 14:05 78 14 138/67 99 Room Air 07/04/16 12:50 98.2 78 14 122/68 97 Room Air PULMONARY: Decreased breath sounds. CARDIOVASCULAR: Regular rate and rhythm. No S3 or S4. ABDOMEN: Soft, nontender, and nondistended. EXTREMITIES: A 1+ edema. LABORATORY DATA: Laboratory Tests Test 07/04/16 15:40 07/04/16 18:05 07/05/16 09:40 Prothrombin Time 12.0 SEC (9.30-11.50) H 11.9 SEC (9.30-11.50) H Prothromb Time International Ratio 1.2 (0.9-1.1) H 1.2 (0.9-1.1) H Activated Partial Thromboplast Time 18 SEC (23-33) L 25 SEC (23-33) Sodium Level 136 mEQ/L (135-145) 137 mEQ/L (135-145) Potassium Level 4.0 mEQ/L (3.4-4.9) 3.6 mEQ/L (3.4-4.9) Chloride Level 98 mEQ/L (98-107) 99 mEQ/L (98-107) Carbon Dioxide Level 19 mEQ/L (20-30) L 23 mEQ/L (20-30) Anion Gap 19 (5-15) H 15 (5-15) Blood Urea Nitrogen 7 mg/dL (7-23) 10 mg/dL (7-23) Creatinine 0.6 mg/dL (0.5-0.9) 0.6 mg/dL (0.5-0.9) Estimat Glomerular Filtration Rate > 60 mL/min (>60) > 60 mL/min (>60) Glucose Level 179 mg/dL (74-106) H 111 mg/dL (74-106) H Calcium Level 8.5 mg/dL (8.6-10.2) L 8.9 mg/dL (8.6-10.2) Total Bilirubin 1.0 mg/dL (0.0-1.2) 1.5 mg/dL (0.0-1.2) H Aspartate Amino Transf (AST/SGOT) 40 U/L (5-40) 29 U/L (5-40) Alanine Aminotransferase (ALT/SGPT) 15 U/L (3-33) 13 U/L (3-33) Alkaline Phosphatase 43 U/L (35-104) 49 U/L (35-104) Total Creatine Kinase 90 U/L (26-140) Creatine Kinase MB 2.0 ng/mL (< 3.8) Creatine Kinase MB Relative Index 2.2 Troponin I < 0.30 ng/mL (<=0.30) Total Protein 7.1 g/dL (6.6-8.7) 6.9 g/dL (6.6-8.7) Albumin 3.7 g/dL (3.5-5.2) 3.5 g/dL (3.5-5.2) Globulin 3.4 g/dL 3.4 g/dL Albumin/Globulin Ratio 1.0 (1.0-2.7) 1.0 (1.0-2.7) White Blood Count 10.3 K/UL (4.8-10.8) 13.2 K/UL (4.8-10.8) H Red Blood Count 1.63 M/UL (4.20-5.40) L 2.93 M/UL (4.20-5.40) L Hemoglobin 6.4 G/DL (12.0-16.0) *L 10.1 G/DL (12.0-16.0) #L Hematocrit 18.7 % (37.0-47.0) L 28.9 % (37.0-47.0) #L Mean Corpuscular Volume 115 FL (80-99) H 98 FL (80-99) # Mean Corpuscular Hemoglobin 39.4 PG (27.0-31.0) H 34.5 PG (27.0-31.0) H Mean Corpuscular Hemoglobin Concent 34.3 G/DL (32.0-36.0) 35.0 G/DL (32.0-36.0) Red Cell Distribution Width 24.1 % (11.6-14.8) H 23.6 % (11.6-14.8) H Platelet Count 61 K/UL (150-450) L 55 K/UL (150-450) L Mean Platelet Volume 7.0 FL (6.5-10.1) 8.9 FL (6.5-10.1) Neutrophils (%) (Auto) % (45.0-75.0) % (45.0-75.0) Lymphocytes (%) (Auto) % (20.0-45.0) % (20.0-45.0) Monocytes (%) (Auto) % (1.0-10.0) % (1.0-10.0) Eosinophils (%) (Auto) % (0.0-3.0) % (0.0-3.0) Basophils (%) (Auto) % (0.0-2.0) % (0.0-2.0) Differential Total Cells Counted 100 Neutrophils % (Manual) 88 % (45-75) H Pending Lymphocytes % (Manual) 7 % (20-45) L Pending Monocytes % (Manual) 2 % (1-10) Eosinophils % (Manual) 0 % (0-3) Basophils % (Manual) 0 % (0-2) Band Neutrophils 3 % (0-8) Platelet Estimate Decreased L Pending Platelet Morphology Normal Pending Hypochromasia 2+ Anisocytosis 2+ Macrocytosis 2+ Erythrocyte Sedimentation Rate Pending Reticulocyte Count Pending Iron Level Pending Unsaturated Iron Binding Pending Direct Bilirubin Pending Lactate Dehydrogenase 557 U/L (135-230) H Carcinoembryonic Antigen Pending Vitamin B12 Level Pending Folate Pending Thyroid Stimulating Hormone (TSH) Pending ASSESSMENT: 1. Severe anemia 2/2 recently administered chemo (have dose-reduced chemo as well) 2. Severe pancytopenia. She has had recent administration of chemotherapy with and this has been dose-reduced. 3. Breast cancer metastatic has been on treatment for over 2 years, have improved her tumor burden, imaging has improved, continuing to monitor with PET scan 4. Hypertension. 5. History of stroke. 6. History of seizures and headache. 7. History of weakness. RECOMMENDATIONS: 1. Monitor counts. 2. Pending ferritin 3. Continue pain control 4. Transfuse to hgb goal >7, have transfused and hgb has improved 5. Platelets goal of above 20k 6. Peripheral smear is wnl 7. The patient shows no evidence of hemolysis. 8. Follow up Pulmonary Critical Care Service Greatly appreciate consultation, MD Jeovanny Royal Roman L. Jul 05, 2016 10:56
[2016-07-05 11:01] LABS: HEMOLYSIS 5; IRON 298 ug/dL (37-145)
[2016-07-05 11:04] LABS: BILIRUBIN,DIRECT 0.3 mg/dL (0.1-0.3)
[2016-07-05 11:06] LABS: RETICULOCYTE COUNT 1.8 % (0.0-2.0)
[2016-07-05 11:27] LABS: ERYTHROCYTE SEDIMENTATION RATE 46 MM/HR (0-30)
[2016-07-05 11:36] VITALS: BP 136/76
--- NOTE | 2016-07-05 12:23 | History and Physical ---
History of Present Illness General Date patient seen: Jul 05, 2016 Reason for Hospitalization: Abnormal Labs Present Illness HPI pt with metastatic breast cancer, on chemotherapy. coming in for blood transfusion Allergies: Coded Allergies: CITRUS AND DERIVATIVES (Verified Allergy, Intermediate, Hives, 07/18/15) Medication History Scheduled Amlodipine Besylate* (Amlodipine Besylate*), 10 MG ORAL DAILY, (Reported) Aspirin* (Aspir 81*), 81 MG ORAL DAILY, (Reported) Clonidine Hcl* (Catapres*), 0.1 MG ORAL DAILY, (Reported) Iron (Iron), 65 MG PO DAILY, (Reported) Levetiracetam* (Levetiracetam*), 500 MG ORAL TWICE A DAY, (Reported) Sucralfate* (Carafate*), 1 GM ORAL TID, (Reported) Patient History Healthcare decision maker Resuscitation status Full Code Advanced Directive on File Review of Systems All Other Systems: negative except mentioned in HPI Physical Exam Lines, tubes and drains: PICC HEENT: normocephalic, atraumatic Neck: non-tender, normal alignment Respiratory/Chest: chest wall non-tender, lungs clear Cardiovascular/Chest: normal peripheral pulses Abdomen: non tender Genitourinary/Rectal: normal rectal exam Last 24 Hour Vital Signs Date Time Temp Pulse Resp B/P Pulse Ox O2 Delivery O2 Flow Rate FiO2 07/05/16 11:36 98.2 90 15 136/76 100 Room Air 07/05/16 08:53 155/76 07/05/16 08:52 85 155/76 07/05/16 07:55 97.0 85 14 155/76 100 Room Air 07/05/16 04:00 97.9 79 18 158/85 100 Room Air 07/05/16 00:00 98.4 90 18 148/77 98 Room Air 07/04/16 19:07 98.2 83 14 146/57 99 Room Air 07/04/16 19:00 97.7 78 18 133/87 97 Room Air 07/04/16 18:51 98.2 83 14 146/57 99 Room Air 07/04/16 16:28 98.2 90 14 132/73 99 Room Air 07/04/16 14:05 78 14 138/67 99 Room Air 07/04/16 12:50 98.2 78 14 122/68 97 Room Air Intake and Output 07/04/16 07/05/16 19:00 07:00 Intake Total 1000 ml 1050 ml Balance 1000 ml 1050 ml Intake Oral 300 ml IV Total 1000 ml Blood Product 750 ml # Voids 1 4 Laboratory Tests Test 07/04/16 15:40 07/04/16 18:05 07/05/16 09:40 Prothrombin Time 12.0 SEC (9.30-11.50) H 11.9 SEC (9.30-11.50) H Prothromb Time International Ratio 1.2 (0.9-1.1) H 1.2 (0.9-1.1) H Activated Partial Thromboplast Time 18 SEC (23-33) L 25 SEC (23-33) Sodium Level 136 mEQ/L (135-145) 137 mEQ/L (135-145) Potassium Level 4.0 mEQ/L (3.4-4.9) 3.6 mEQ/L (3.4-4.9) Chloride Level 98 mEQ/L (98-107) 99 mEQ/L (98-107) Carbon Dioxide Level 19 mEQ/L (20-30) L 23 mEQ/L (20-30) Anion Gap 19 (5-15) H 15 (5-15) Blood Urea Nitrogen 7 mg/dL (7-23) 10 mg/dL (7-23) Creatinine 0.6 mg/dL (0.5-0.9) 0.6 mg/dL (0.5-0.9) Estimat Glomerular Filtration Rate > 60 mL/min (>60) > 60 mL/min (>60) Glucose Level 179 mg/dL (74-106) H 111 mg/dL (74-106) H Calcium Level 8.5 mg/dL (8.6-10.2) L 8.9 mg/dL (8.6-10.2) Total Bilirubin 1.0 mg/dL (0.0-1.2) 1.5 mg/dL (0.0-1.2) H Aspartate Amino Transf (AST/SGOT) 40 U/L (5-40) 29 U/L (5-40) Alanine Aminotransferase (ALT/SGPT) 15 U/L (3-33) 13 U/L (3-33) Alkaline Phosphatase 43 U/L (35-104) 49 U/L (35-104) Total Creatine Kinase 90 U/L (26-140) Creatine Kinase MB 2.0 ng/mL (< 3.8) Creatine Kinase MB Relative Index 2.2 Troponin I < 0.30 ng/mL (<=0.30) Total Protein 7.1 g/dL (6.6-8.7) 6.9 g/dL (6.6-8.7) Albumin 3.7 g/dL (3.5-5.2) 3.5 g/dL (3.5-5.2) Globulin 3.4 g/dL 3.4 g/dL Albumin/Globulin Ratio 1.0 (1.0-2.7) 1.0 (1.0-2.7) White Blood Count 10.3 K/UL (4.8-10.8) 13.2 K/UL (4.8-10.8) H Red Blood Count 1.63 M/UL (4.20-5.40) L 2.93 M/UL (4.20-5.40) L Hemoglobin 6.4 G/DL (12.0-16.0) *L 10.1 G/DL (12.0-16.0) #L Hematocrit 18.7 % (37.0-47.0) L 28.9 % (37.0-47.0) #L Mean Corpuscular Volume 115 FL (80-99) H 98 FL (80-99) # Mean Corpuscular Hemoglobin 39.4 PG (27.0-31.0) H 34.5 PG (27.0-31.0) H Mean Corpuscular Hemoglobin Concent 34.3 G/DL (32.0-36.0) 35.0 G/DL (32.0-36.0) Red Cell Distribution Width 24.1 % (11.6-14.8) H 23.6 % (11.6-14.8) H Platelet Count 61 K/UL (150-450) L 55 K/UL (150-450) L Mean Platelet Volume 7.0 FL (6.5-10.1) 8.9 FL (6.5-10.1) Neutrophils (%) (Auto) % (45.0-75.0) % (45.0-75.0) Lymphocytes (%) (Auto) % (20.0-45.0) % (20.0-45.0) Monocytes (%) (Auto) % (1.0-10.0) % (1.0-10.0) Eosinophils (%) (Auto) % (0.0-3.0) % (0.0-3.0) Basophils (%) (Auto) % (0.0-2.0) % (0.0-2.0) Differential Total Cells Counted 100 100 Neutrophils % (Manual) 88 % (45-75) H 84 % (45-75) H Lymphocytes % (Manual) 7 % (20-45) L 9 % (20-45) L Monocytes % (Manual) 2 % (1-10) 4 % (1-10) Eosinophils % (Manual) 0 % (0-3) 1 % (0-3) Basophils % (Manual) 0 % (0-2) 0 % (0-2) Band Neutrophils 3 % (0-8) 2 % (0-8) Platelet Estimate Decreased L Decreased L Platelet Morphology Normal Normal Hypochromasia 2+ Anisocytosis 2+ 1+ Macrocytosis 2+ Poikilocytosis 1+ Erythrocyte Sedimentation Rate 46 MM/HR (0-30) H Reticulocyte Count 1.8 % (0.0-2.0) Iron Level 298 ug/dL (37-145) H Total Iron Binding Capacity ug/dL (250-400) Percent Iron Saturation % (15-50) Unsaturated Iron Binding ug/dL (112-346) Direct Bilirubin 0.3 mg/dL (0.1-0.3) Lactate Dehydrogenase 557 U/L (135-230) H Carcinoembryonic Antigen 2.3 ng/mL Vitamin B12 Level 733 pg/mL (211-946) Folate Pending Thyroid Stimulating Hormone (TSH) 1.220 uIU/mL (0.300-4.500) Height (Feet): 5 Height (Inches): 5.00 Weight (Pounds): 137 Medications Current Medications Medications (Trade) Dose Ordered Sig/[place]ancho Route PRN Reason Start Time Stop Time Status Last Admin Dose Admin Acetaminophen (Tylenol) 650 mg Q4H PRN ORAL fever 07/04/16 22:00 08/03/16 21:59 Al Hydroxide/Mg Hydroxide (Mylanta II) 30 ml Q6H PRN ORAL dyspepsia 07/04/16 22:00 08/03/16 21:59 Amlodipine Besylate (Norvasc) 10 mg DAILY ORAL 07/05/16 09:00 08/04/16 08:59 07/05/16 08:52 Clonidine HCl (Catapres) 0.1 mg DAILY ORAL 07/05/16 09:00 08/04/16 08:59 07/05/16 08:53 Dextrose (Dextrose 50%) STAT PRN IV Hypoglycemia 07/04/16 22:00 08/03/16 21:59 Levetiracetam (Keppra) 500 mg TWICE A DAY ORAL 07/05/16 09:00 08/04/16 08:59 07/05/16 08:52 Lorazepam (Ativan 2mg/ml 1ml) 0.5 mg Q4H PRN IV For Anxiety 07/04/16 22:00 07/11/16 21:59 Morphine Sulfate (Morphine Sulfate) 1 mg Q4H PRN IVP For Pain 07/04/16 22:00 07/11/16 21:59 Ondansetron HCl (Zofran) 4 mg Q6H PRN IVP Nausea & Vomiting 07/04/16 22:00 08/03/16 21:59 Polyethylene Glycol (Miralax) 17 gm HSPRN PRN ORAL Constipation 07/04/16 22:00 08/03/16 21:59 Sucralfate (Carafate) 1 gm TID ORAL 07/05/16 09:00 08/04/16 08:59 07/05/16 08:52 Zolpidem Tartrate (Ambien) 5 mg HSPRN PRN ORAL Insomnia 07/04/16 22:00 08/03/16 21:59 Assessment/Plan Problem List: (1) Symptomatic anemia ICD Codes: D64.9 - Anemia, unspecified SNOMED: 055693314 (2) Breast cancer ICD Codes: C50.919 - Malignant neoplasm of unspecified site of unspecified female breast SNOMED: 286931594 (3) Metastatic adenocarcinoma ICD Codes: C80.1 - Malignant (primary) neoplasm, unspecified SNOMED: 5524580, 783005923 Assessment/Plan prbc check h/h oncology to see. DELLA SNELL Jul 05, 2016 12:23
[2016-07-05 16:00] VITALS: BP 136/69
[2016-07-06 11:31] LABS: OTHERS PATHOLOGIST COMMENT
--- NOTE | 2016-07-08 10:43 | Discharge Summary ---
Discharge Summary Hospital Course Date of Admission Jul 04, 2016 at 13:37 Date of Discharge Jul 05, 2016 at 18:35 Admitting Diagnosis anemia, transfusion HPI Patti Cantrell is a 66 year old female who was admitted on Jul 04, 2016 at 13:37 for Anemia,Transfusion Hospital Course dc summary #[id number] Discharge Medications Continued Medications: Amlodipine Besylate* (Amlodipine Besylate*) 10 Mg Tablet 10 MG ORAL DAILY, TAB Aspirin* (Aspir 81*) 81 Mg Tablet.dr 81 MG ORAL DAILY, TAB Clonidine Hcl* (Catapres*) 0.1 Mg Tablet 0.1 MG ORAL DAILY, TAB Levetiracetam* (Levetiracetam*) 500 Mg Tablet 500 MG ORAL TWICE A DAY Sucralfate* (Carafate*) 1 Gm Tablet 1 GM ORAL TID, TAB Discharge Condition Upon Discharge: stable Discharge Disposition Patient was discharged to Home (01) Discharge Diagnoses: Discharge Instructions Discharge Instructions Special Instructions I have been assigned to complete a D/C Summary on this account. I was not involved in the patient management Shaniqua Sue NP (Vanchtein) Jul 08, 2016 10:43
--- NOTE | 2016-07-08 14:06 | Cardiology Report ---
APPROVED REPORT EKG Measurement Heart [id number] [place] [id number] Normal sinus rhythm Moderate voltage criteria for LVH, may be normal variant Nonspecific T wave abnormality Abnormal ECG
--- NOTE | 2016-07-09 00:38 | Discharge Summary 2 SIG ---
DATE OF ADMISSION: 07/04/2016 DATE OF DISCHARGE: 07/05/2016 REASON FOR ADMISSION: 66 years old female with a history of metastatic breast CA , on chemotherapy for two years , was sent from the oncologist office for anemia and requesting admission for transfusion. The patient reported generalized weakness and fatigue. Denied chest pain, shortness of breath, abdominal pain. No nausea. No vomiting. No fever. No chills. Workup in the emergency room revealed no fever ; pulse oximetry was stable on the room air. Hemoglobin was 6.4 and hematocrit 18.7. WBC count was 10.3, and platelet count was 61. The patient was admitted for blood transfusion. INITIAL DIAGNOSES: 1. Acute symptomatic anemia 2. Thrombocytopenia, likely related to recent chemotherapy. 3. Metastatic breast cancer, status post chemotherapy. HOSPITAL COURSE: [facility]/Oncologist seen the patient. The patient has undergone transfusion of total of 3 units of packed red blood cells. After 3 units of packed red blood cells, hemoglobin up to 10.1, hematocrit 28.9, stool OB was positive x1. Iron panel was elevated. Stable B12 level. CEA within normal limits. Blood pressure was stable with the current regimen of antihypertensives. No seizure activities while in the hospital. Continue Keppra. Chest x-ray revealed no evidence of cardiopulmonary disease. Per drop wire stringer, the peripheral blood smear was within normal limits. No evidence of hemolysis. The patient was stable for discharge and follow up with the oncologist as outpatient. Per oncologist, the patient was on chemotherapy for over 2 years, and her tumor burden improved. Imaging improved as well. He recommended to continue further monitoring with PET scan as outpatient. Due to the rapid and unexpected improvement in patient's condition, the patient was discharged in one day. DISCHARGE DIAGNOSES: 1. Acute symptomatic anemia 2. Status post transfusion of three units of packed red blood cells. 2. Thrombocytopenia, likely related to recent chemotherapy. 3. Metastatic breast cancer, status post chemotherapy. 4. Hypertension. 5. History of cerebrovascular accident. 6. Seizure disorder. DISCHARGE MEDICATIONS: See medication reconciliation list. DISCHARGE INSTRUCTIONS: The patient to follow up with Oncologist for further chemotherapy. Mirali Zarrabi, M.D. I have been assigned to dictate discharge summary on this account and I was not involved in the patient's management. Shaniqua Sue (Vanchtein) N.PKarissa DR: YESICA JOB#: [id number] CC: ROBERT
--- NOTE | 2016-07-09 12:12 | Diagnostic Imaging Report ---
APPROVED REPORT CPT Code: 42716 Present Symptoms Comments: Abnormal labs BILATERAL: Imaging reveals a patent deep venous system bilaterally. There is no evidence of thrombus within the femoral, popliteal or tibial segments. The greater saphenous veins are also within normal limits. Doppler indicates normal spontaneous flow within these segments.
== END 2016-07-05 18:35 | disposition home or self-care (01) | DRG 813 ==
LOC: EMR 13:36 → 4E 13:37 → EDBEDREQ 20:45
PROC: 30233N1 Transfusion of Nonautologous Red Blood Cells into Peripheral Vein, Percutaneous Approach (ICD-10-PCS; principal; 2016-07-04)
DX: D69.59 Other secondary thrombocytopenia (principal); D61.818 Other pancytopenia; C79.9 Secondary malignant neoplasm of unspecified site; C50.919 Malignant neoplasm of unspecified site of unspecified female breast; T45.1X5A Adverse effect of antineoplastic and immunosuppressive drugs, initial encounter; I10 Essential (primary) hypertension; Z86.73 Personal history of transient ischemic attack (TIA), and cerebral infarction without residual deficits; G40.909 Epilepsy, unspecified, not intractable, without status epilepticus
CPT/HCPCS: 36415; 71010; 80053; 80299; 82248; 82270; 82378; 82550; 82553; 82607; 82746; 83540; 83550; 83615; 84443; 84484; 85007; 85025; 85044; 85060; 85610; 85651; 85730; 86850; 86900; 86901; 86904; 86920; 93005; 93970

== ENCOUNTER 2016-07-12 13:49 | Emergency (ER) | payer BC ==
[~2016-07-12] VITALS: Ht 165.1 cm; Wt 62.6 kg
--- NOTE | 2016-07-12 18:08 | Emergency Room Report ---
History of Present Illness General Chief Complaint: General Complaint Source: Patient Present Illness HPI 66 YOF sent by Oncologist for "PICC line removal." Patient states its not working - cant withdraw blood or push medication. She is vague on whether oncologist wanted another PICC line placed. patient states she still gets peripheral blood draws done. Was admitted recently for transfusion for low H&H. Denies chest pain, SOB, palpitations, dizziness. Per EMR/discharge summary patient "was discharged after 1 day because of rapid improvement." Allergies: Coded Allergies: CITRUS AND DERIVATIVES (Verified Allergy, Intermediate, Hives, 07/18/15) Patient History Past Medical History: other - breast ca, anema Past Surgical History: other - breast ca Pertinent Family History: none Social History: Denies: alcohol use, drug use, smoking Now: No Immunizations: UTD Reviewed Nursing Documentation: PMH: Agreed, PSxH: Agreed Nursing Documentation-PMH Past Medical History: No History, Except For Hx Cardiac Problems: No Hx Hypertension: Yes Hx Pacemaker: No Hx Asthma: No Hx COPD: No Hx Diabetes: No Hx Cancer: Yes - Jan 2015 Hx Gastrointestinal Problems: No Hx Dialysis: No Hx Neurological Problems: Yes Hx Cerebrovascular Accident: Yes - TIA Hx Seizures: Yes Hx Headaches: Yes Physical Exam Vital Signs Date Time Temp Pulse Resp B/P Pulse Ox O2 Delivery O2 Flow Rate FiO2 07/12/16 14:15 98.1 95 16 147/76 98 Room Air Sp02 EP Interpretation: reviewed, normal General Appearance: normal inspection, well appearing, no apparent distress, alert Head: atraumatic ENT: normal ENT inspection, hearing grossly normal, normal voice Neck: normal inspection, full range of motion, supple, no bony tend Respiratory: normal inspection, lungs clear, normal breath sounds, no respiratory distress, no retraction, no wheezing Cardiovascular #1: regular rate, rhythm, no edema Gastrointestinal: normal inspection, normal bowel sounds, non tender, soft, no guarding, no hernia Genitourinary: no CVA tenderness Musculoskeletal: normal inspection, back normal, normal range of motion, Cesar' s Sign negative, other - Left antecubital: PICC line in place. No palpable warmth. No visualized sign of infection Neurologic: normal inspection, alert, oriented x3, responsive, livestock nutritionist III-XII nml as tested, motor strength/tone normal, speech normal Psychiatric: normal inspection, judgement/insight normal, mood/affect normal Skin: normal inspection, normal color, no rash Lymphatic: normal inspection Medical Decision Making Diagnostic Impression: Primary Impression: PIC line (peripherally inserted central catheter) removal ER Course PICC line removed in ED Advised to followup with PMD/oncologist for outpatient PICC placement if necessary Last Vital Signs Date Time Temp Pulse Resp B/P Pulse Ox O2 Delivery O2 Flow Rate FiO2 07/12/16 14:15 98.1 95 16 147/76 98 Room Air Status: improved Disposition: HOME, SELF-CARE Condition: Improved Referrals: [facility],REFERRING (PCP) Patient Instructions: PICC Removal, Care After Additional Instructions: - Please followup with your oncologist or primary care doctor if they can refer you to outpatient center/clinic for PICC line placement - If not, return to ER on Friday DINO THOMAS M.D. Jul 12, 2016 18:08
[2016-07-12 18:16] VITALS: BP 147/76
[2016-07-12 18:33] VITALS: BP 136/74
== END 2016-07-12 18:33 | disposition home or self-care (01) ==
LOC: EMR 15:00
DX: T82.594A Other mechanical complication of infusion catheter, initial encounter (principal); Z85.3 Personal history of malignant neoplasm of breast; I10 Essential (primary) hypertension; Y84.8 Other medical procedures as the cause of abnormal reaction of the patient, or of later complication, without mention of misadventure at the time of the procedure; Y92.9 Unspecified place or not applicable; Y99.8 Other external cause status

== ENCOUNTER → 2016-07-23 | Outpatient (CLI) | payer BC ==
[~2016-07-23] VITALS: Ht 165.1 cm; Wt 62.1 kg
[~2016-07-23] MED LIST changes: +Heparin 2000 units/Ns 1000ml 1,000 ML ONE; +Lidocaine 1% Plain 30 ml INJ ONE; +Sodium Bicarbonate 8.4% 50ml Inj ONE
--- NOTE | 2016-07-23 17:32 | Diagnostic Imaging Report ---
Indications: Long-term central IV access required for intravenous therapy Technique: The procedure indications, risks, and alternatives were explained to the patient who understands and gives consent to proceed. Strict aseptic technique was utilized, including hand washing, use of hat and mask, use of sterile gown and gloves, sterile ultrasound gel and probe cover, prepping of left arm skin with 2% chlorhexidine solution, and application of full body sterile barrier over this area. Skin and subcutaneous soft tissues were infiltrated with 1% lidocaine and sodium bicarbonate. A small dermatotomy was made, through which the larger of two patent, adequate size left brachial veins was punctured percutaneously under direct sonographic guidance with a 21-gauge needle . Exchange was made over a 0.018 inch guidewire for a 5 Nepali peel-away sheath. A Z[employer] Power-PICC 5 Nepali dual lumen central venous catheter was cut to appropriate length, then advanced through the sheath over the guidewire under direct fluoroscopic guidance into the superior vena cava. Guidewire and sheath were removed. Both catheter ports were aspirated, then flushed with heparinized saline. Final image was obtained. Catheter was secured the skin with adhesive dressing. Patient tolerated procedure well without immediate complications. Total fluoroscopy time: 0.4 minutes. Dose-area product: 9.3 dGy-cm2 Findings: Final image demonstrates tip of the central venous catheter at the level of superior vena cava-right atrial junction, 37 cm in from the skin. Both ports aspirate and flush freely. IMPRESSION: Placement of peripherally inserted central venous catheter via left brachial vein, working well.
== END | disposition home or self-care (01) ==
LOC: RAD 10:30
DX: Z79.899 Other long term (current) drug therapy (principal)
CPT/HCPCS: 36569; 76937; J1644; J2001; J3490

== ENCOUNTER 2016-09-24 16:16 | Inpatient (IN) | payer BC, OTHER ==
[~2016-09-24] VITALS: Ht 165.1 cm; Wt 59.9 kg
[~2016-09-24 16:16] MED LIST changes: -Heparin 2000 units/Ns 1000ml 1,000 ML ONE; -Lidocaine 1% Plain 30 ml INJ ONE; -Sodium Bicarbonate 8.4% 50ml Inj ONE
--- NOTE | 2016-09-24 16:52 | Emergency Room Report ---
History of Present Illness General Chief Complaint: General Complaint Source: Patient Present Illness HPI Patient reports that she is receiving chemotherapy for breast cancer She was told by her Hemoccult was just that she is anemic and requires blood transfusion She has been weaker than usual over the past several days Patient reports that she has had a blood transfusion previously Denies any chest pain or shortness of breath Denies any back or flank pain Allergies: Coded Allergies: CITRUS AND DERIVATIVES (Verified Allergy, Intermediate, Hives, 07/18/15) Patient History Past Medical History: see triage record Pertinent Family History: none Now: No Reviewed Nursing Documentation: PMH: Agreed, PSxH: Agreed Nursing Documentation-PMH Hx Cardiac Problems: No Hx Hypertension: Yes Hx Pacemaker: No Hx Asthma: No Hx COPD: No Hx Diabetes: No Hx Cancer: Yes - Jan 2015 Hx Gastrointestinal Problems: No Hx Dialysis: No Hx Neurological Problems: Yes Hx Cerebrovascular Accident: Yes - TIA Hx Seizures: Yes Hx Headaches: Yes Review of Systems All Other Systems: negative except mentioned in HPI Physical Exam Vital Signs Date Time Temp Pulse Resp B/P Pulse Ox O2 Delivery O2 Flow Rate FiO2 09/24/16 16:27 98.2 87 15 118/67 100 Room Air Sp02 EP Interpretation: reviewed, normal General Appearance: well appearing, no apparent distress Head: normocephalic, atraumatic Eyes: bilateral eye EOMI, bilateral eye PERRL, bilateral eye other - Pale conjunctivae ENT: hearing grossly normal, normal pharynx, TMs + canals normal, uvula midline Neck: full range of motion, supple, no meningismus, no bony tend Respiratory: lungs clear, normal breath sounds, no rhonchi, no respiratory distress, no retraction, no accessory muscle use Cardiovascular #1: normal peripheral pulses, regular rate, rhythm, no edema, no gallop, no JVD, no murmur Gastrointestinal: normal bowel sounds, non tender, soft, no mass, no organomegaly, non-distended, no guarding, no hernia, no pulsatile mass, no rebound Genitourinary: no CVA tenderness Musculoskeletal: normal inspection Neurologic: oriented x3, responsive, environmental monitoring specialist III-XII nml as tested, motor strength/ tone normal, sensory intact Psychiatric: mood/affect normal Skin: normal color, no rash, warm/dry, palpation normal Lymphatic: normal inspection, no adenopathy Medical Decision Making Diagnostic Impression: Primary Impression: Symptomatic anemia ER Course Patient is a fairly complex patient with multiple differential to consideration including but not limited to cardiac cardiopulmonary and vascular emergencies Patient's blood work does reveal significant anemia Given the patient's symptomatic presentation transfusion was ordered to the emergency room Patient admitted for further inpatient care Labs Test 09/24/16 17:22 White Blood Count 4.0 K/UL (4.8-10.8) Red Blood Count 1.54 M/UL (4.20-5.40) Hemoglobin 6.5 G/DL (12.0-16.0) Hematocrit 18.2 % (37.0-47.0) Mean Corpuscular Volume 118 FL (80-99) Mean Corpuscular Hemoglobin 42.1 PG (27.0-31.0) Mean Corpuscular Hemoglobin Concent 35.7 G/DL (32.0-36.0) Red Cell Distribution Width 22.4 % (11.6-14.8) Platelet Count 99 K/UL (150-450) Mean Platelet Volume 8.3 FL (6.5-10.1) Neutrophils (%) (Auto) % (45.0-75.0) Lymphocytes (%) (Auto) % (20.0-45.0) Monocytes (%) (Auto) % (1.0-10.0) Eosinophils (%) (Auto) % (0.0-3.0) Basophils (%) (Auto) % (0.0-2.0) Prothrombin Time 11.3 SEC (9.30-11.50) Prothromb Time International Ratio 1.1 (0.9-1.1) Activated Partial Thromboplast Time 28 SEC (23-33) Sodium Level 139 mEQ/L (135-145) Potassium Level 3.3 mEQ/L (3.4-4.9) Chloride Level 102 mEQ/L (98-107) Carbon Dioxide Level 22 mEQ/L (20-30) Anion Gap 15 (5-15) Blood Urea Nitrogen 5 mg/dL (7-23) Creatinine 0.6 mg/dL (0.5-0.9) Estimat Glomerular Filtration Rate > 60 mL/min (>60) Glucose Level 171 mg/dL (74-106) Calcium Level 8.8 mg/dL (8.6-10.2) Total Bilirubin 0.3 mg/dL (0.0-1.2) Aspartate Amino Transf (AST/SGOT) 23 U/L (5-40) Alanine Aminotransferase (ALT/SGPT) 11 U/L (3-33) Alkaline Phosphatase 68 U/L (35-104) Total Creatine Kinase 75 U/L (26-140) Creatine Kinase MB < 1.5 ng/mL (< 3.8) Creatine Kinase MB Relative Index Troponin I < 0.30 ng/mL (<=0.30) Total Protein 6.9 g/dL (6.6-8.7) Albumin 3.4 g/dL (3.5-5.2) Globulin 3.5 g/dL Albumin/Globulin Ratio 0.9 (1.0-2.7) Rhythm Strip Diag. Results EP Interpretation: yes Rate: 77 Rhythm: NSR, no PVC's, no ectopy Chest X-Ray Diagnostic Results EP Interpretation: Yes Findings: no consolidation, no effusion, no pneumothorax Number of Views: 1 Last Vital Signs Date Time Temp Pulse Resp B/P Pulse Ox O2 Delivery O2 Flow Rate FiO2 09/24/16 16:27 98.2 87 15 118/67 100 Room Air Status: improved Disposition: ADMITTED INPATIENT Condition: Serious BRUNILDA DAUGHERTY D.O. September 24, 2016 16:52
[2016-09-24 17:30] VITALS: BP 130/62
[2016-09-24 17:51] LABS: INR 1.1 (0.9-1.1); PROTHROMBIN TIME 11.3 SEC (9.30-11.50)
[2016-09-24 17:53] LABS: MEAN CORPUSCULAR HEMOGLOBIN 42.1 PG (27.0-31.0); MEAN CORPUSCULAR HGB CONC 35.7 G/DL (32.0-36.0); MEAN CORPUSCULAR VOLUME 118 FL (80-99); MEAN PLATELET VOLUME 8.3 FL (6.5-10.1); PLATELET COUNT 99 K/UL (150-450); RED BLOOD COUNT 1.54 M/UL (4.20-5.40); RED CELL DISTRIBUTION WIDTH 22.4 % (11.6-14.8)
[2016-09-24 17:58] LABS: TROPONIN I < 0.30 ng/mL (<=0.30)
[2016-09-24 18:01] LABS: ALANINE AMINOTRANSFERASE 11 U/L (3-33); ALBUMIN/GLOBULIN RATIO 0.9 (1.0-2.7); ANION GAP 15 (5-15); ASPARTATE AMINO TRANSFERASE 23 U/L (5-40); CALCIUM 8.8 mg/dL (8.6-10.2); CARBON DIOXIDE 22 mEQ/L (20-30); CHLORIDE 102 mEQ/L (98-107); CREATININE 0.6 mg/dL (0.5-0.9); GLOMERULAR FILTRATION RATE > 60 mL/min (>60); HEMOLYSIS 2; POTASSIUM 3.3 mEQ/L (3.4-4.9); SODIUM 139 mEQ/L (135-145); TOTAL PROTEIN 6.9 g/dL (6.6-8.7)
[2016-09-24 18:11] LABS: CKMB < 1.5 ng/mL (< 3.8)
[2016-09-24 18:30] VITALS: BP 121/82
[2016-09-24] MEDS ORDERED: Mylanta II UD 30ml ORAL PRN (19:15)
[2016-09-24] MEDS ORDERED: LORazepam Inj 2mg/ml 1ml IV PRN (19:15)
[2016-09-24] MEDS ORDERED: Miralax 17gm pkt ORAL PRN (19:15)
[2016-09-24] MEDS ORDERED: Morphine Sulfate 2mg/ml Inj IVP PRN (19:15)
[2016-09-24] MEDS ORDERED: Zolpidem 5mg tab ORAL PRN (19:15)
[2016-09-24 19:30] VITALS: BP_SYST 132; BP_SYST 140; BP_DIAS 52; BP_DIAS 61
[2016-09-24 20:48] LABS: ANISOCYTOSIS 2+; HYPOCHROMASIA 2+; LYMPHOCYTES % (MANUAL) 34 % (20-45); NEUTROPHILS % (MANUAL) 59 % (45-75); NUCLEATED RED BLOOD CELLS 4 /100 WBC; POLYCHROMASIA 1+; TOTAL CELLS COUNTED 100
[2016-09-24 20:49] LABS: BAND NEUTROPHILS % (MANUAL) 0 % (0-8); BASOPHILS % (MANUAL) 0 % (0-2); EOSINOPHILS % (MANUAL) 0 % (0-3); MACROCYTES 2+; PLATELET ESTIMATE DECREASED; PLATELET MORPHOLOGY NORMAL
[2016-09-24 21:36] VITALS: BP 140/68
[2016-09-25 00:06] VITALS: BP 135/70
[2016-09-25 04:00] VITALS: BP 157/80
[2016-09-25 06:59] LABS: MEAN CORPUSCULAR HEMOGLOBIN 35.7 PG (27.0-31.0); MEAN CORPUSCULAR HGB CONC 34.9 G/DL (32.0-36.0); MEAN CORPUSCULAR VOLUME 103 FL (80-99); MEAN PLATELET VOLUME 8.1 FL (6.5-10.1); PLATELET COUNT 106 K/UL (150-450); RED BLOOD COUNT 2.63 M/UL (4.20-5.40); RED CELL DISTRIBUTION WIDTH 24.4 % (11.6-14.8); WHITE BLOOD COUNT 4.1 K/UL (4.8-10.8)
[2016-09-25 07:18] LABS: ALANINE AMINOTRANSFERASE 12 U/L (3-33); ALBUMIN/GLOBULIN RATIO 0.8 (1.0-2.7); ANION GAP 14 (5-15); ASPARTATE AMINO TRANSFERASE 26 U/L (5-40); CALCIUM 9.4 mg/dL (8.6-10.2); CARBON DIOXIDE 24 mEQ/L (20-30); CHLORIDE 103 mEQ/L (98-107); CHOLESTEROL 103 mg/dL (< 200); CHOLESTEROL/HDL RATIO 1.9 (3.3-4.4); CREATININE 0.5 mg/dL (0.5-0.9); GLOMERULAR FILTRATION RATE > 60 mL/min (>60); HEMOLYSIS 5; LDL CHOLESTEROL (CALC.) 34 mg/dL (60-99); POTASSIUM 3.5 mEQ/L (3.4-4.9); SODIUM 141 mEQ/L (135-145); TOTAL PROTEIN 7.3 g/dL (6.6-8.7)
[2016-09-25 07:50] LABS: BILIRUBIN,DIRECT 0.3 mg/dL (0.1-0.3)
[2016-09-25 08:06] VITALS: BP 149/74
[2016-09-25 09:01] LABS: BAND NEUTROPHILS % (MANUAL) 0 % (0-8); BASOPHILS % (MANUAL) 0 % (0-2); EOSINOPHILS % (MANUAL) 0 % (0-3); LYMPHOCYTES % (MANUAL) 31 % (20-45); NEUTROPHILS % (MANUAL) 53 % (45-75); PLATELET ESTIMATE DECREASED; PLATELET MORPHOLOGY NORMAL; TOTAL CELLS COUNTED 100
[2016-09-25 09:02] LABS: ANISOCYTOSIS 2+; HYPOCHROMASIA 1+; MACROCYTES 1+
[2016-09-25] MEDS: Sucralfate 1gm tab ORAL SCH ×2 (09:03→12:59)
--- NOTE | 2016-09-25 09:56 | Diagnostic Imaging Report ---
Indication: SOB Technique: One view of the chest Comparison: 07/04/2016 Findings: Lungs and pleural spaces are clear. Heart size is normal. Left arm PICC again demonstrated No significant interim change Impression: No acute process
[2016-09-25 11:25] LABS: OTHERS PATHOLOGIST COMMENT
[2016-09-25 12:04] VITALS: BP 151/70
--- NOTE | 2016-09-25 12:21 | History and Physical ---
History of Present Illness General Date patient seen: September 25, 2016 Reason for Hospitalization: General Complaint Present Illness HPI 66 year old female receiving chemotherapy for breast cancer She was told by her hemotologist that she is anemic and requires blood transfusion She has been weaker than usual over the past several days Allergies: Coded Allergies: CITRUS AND DERIVATIVES (Verified Allergy, Intermediate, Hives, 07/18/15) Medication History Scheduled Amlodipine Besylate* (Amlodipine Besylate*), 10 MG ORAL DAILY, (Reported) Aspirin* (Aspir 81*), 81 MG ORAL DAILY, (Reported) Clonidine Hcl* (Catapres*), 0.1 MG ORAL DAILY, (Reported) Levetiracetam* (Levetiracetam*), 500 MG ORAL TWICE A DAY, (Reported) Sucralfate* (Carafate*), 1 GM ORAL TID, (Reported) Patient History Healthcare decision maker Self Resuscitation status Full Code Advanced Directive on File No Review of Systems All Other Systems: negative except mentioned in HPI Physical Exam General Appearance: WD/WN Lines, tubes and drains: peripheral HEENT: normocephalic, atraumatic Neck: non-tender, normal alignment Respiratory/Chest: chest wall non-tender, lungs clear Cardiovascular/Chest: normal peripheral pulses, normal rate Abdomen: normal bowel sounds, hyperactive bowel sounds Extremities: normal range of motion Skin Exam: normal pigmentation Neurologic: personnel records clerk II-XII grossly normal Last 24 Hour Vital Signs Date Time Temp Pulse Resp B/P Pulse Ox O2 Delivery O2 Flow Rate FiO2 09/25/16 12:04 99.7 100 18 151/70 98 Room Air 09/25/16 09:03 74 149/74 09/25/16 08:06 97.7 74 18 149/74 100 Room Air 09/25/16 04:00 98.1 82 20 157/80 97 Room Air 09/25/16 00:06 97.9 76 20 135/70 100 Room Air 09/24/16 21:36 97.5 81 19 140/68 100 Room Air 09/24/16 20:19 98.2 85 14 132/52 98 Room Air 09/24/16 19:30 85 14 132/52 98 Room Air 09/24/16 19:30 90 16 140/61 97 Room Air 09/24/16 18:30 84 21 121/82 98 Room Air 09/24/16 17:30 76 18 130/62 98 Room Air 09/24/16 16:27 98.2 87 15 118/67 100 Room Air Intake and Output 09/24/16 09/25/16 19:00 07:00 Intake Total 125 ml Output Total 350 ml Balance -225 ml Intake Oral 125 ml Output Urine Total 350 ml Laboratory Tests Test 09/24/16 17:22 09/25/16 06:30 White Blood Count 4.0 K/UL (4.8-10.8) L 4.1 K/UL (4.8-10.8) L Red Blood Count 1.54 M/UL (4.20-5.40) L 2.63 M/UL (4.20-5.40) L Hemoglobin 6.5 G/DL (12.0-16.0) *L 9.4 G/DL (12.0-16.0) #L Hematocrit 18.2 % (37.0-47.0) L 26.9 % (37.0-47.0) #L Mean Corpuscular Volume 118 FL (80-99) H 103 FL (80-99) #H Mean Corpuscular Hemoglobin 42.1 PG (27.0-31.0) H 35.7 PG (27.0-31.0) H Mean Corpuscular Hemoglobin Concent 35.7 G/DL (32.0-36.0) 34.9 G/DL (32.0-36.0) Red Cell Distribution Width 22.4 % (11.6-14.8) H 24.4 % (11.6-14.8) H Platelet Count 99 K/UL (150-450) L 106 K/UL (150-450) L Mean Platelet Volume 8.3 FL (6.5-10.1) 8.1 FL (6.5-10.1) Neutrophils (%) (Auto) % (45.0-75.0) % (45.0-75.0) Lymphocytes (%) (Auto) % (20.0-45.0) % (20.0-45.0) Monocytes (%) (Auto) % (1.0-10.0) % (1.0-10.0) Eosinophils (%) (Auto) % (0.0-3.0) % (0.0-3.0) Basophils (%) (Auto) % (0.0-2.0) % (0.0-2.0) Differential Total Cells Counted 100 100 Neutrophils % (Manual) 59 % (45-75) 53 % (45-75) Lymphocytes % (Manual) 34 % (20-45) 31 % (20-45) Monocytes % (Manual) 7 % (1-10) 16 % (1-10) H Eosinophils % (Manual) 0 % (0-3) 0 % (0-3) Basophils % (Manual) 0 % (0-2) 0 % (0-2) Band Neutrophils 0 % (0-8) 0 % (0-8) Nucleated Red Blood Cells 4 /100 WBC Other Cell Type Pathologist comment Platelet Estimate Decreased L Decreased L Platelet Morphology Normal Normal Polychromasia 1+ Hypochromasia 2+ 1+ Anisocytosis 2+ 2+ Macrocytosis 2+ 1+ Prothrombin Time 11.3 SEC (9.30-11.50) Prothromb Time International Ratio 1.1 (0.9-1.1) Activated Partial Thromboplast Time 28 SEC (23-33) Sodium Level 139 mEQ/L (135-145) 141 mEQ/L (135-145) Potassium Level 3.3 mEQ/L (3.4-4.9) L 3.5 mEQ/L (3.4-4.9) Chloride Level 102 mEQ/L (98-107) 103 mEQ/L (98-107) Carbon Dioxide Level 22 mEQ/L (20-30) 24 mEQ/L (20-30) Anion Gap 15 (5-15) 14 (5-15) Blood Urea Nitrogen 5 mg/dL (7-23) L 6 mg/dL (7-23) L Creatinine 0.6 mg/dL (0.5-0.9) 0.5 mg/dL (0.5-0.9) Estimat Glomerular Filtration Rate > 60 mL/min (>60) > 60 mL/min (>60) Glucose Level 171 mg/dL (74-106) H 107 mg/dL (74-106) H Calcium Level 8.8 mg/dL (8.6-10.2) 9.4 mg/dL (8.6-10.2) Total Bilirubin 0.3 mg/dL (0.0-1.2) 1.1 mg/dL (0.0-1.2) Aspartate Amino Transf (AST/SGOT) 23 U/L (5-40) 26 U/L (5-40) Alanine Aminotransferase (ALT/SGPT) 11 U/L (3-33) 12 U/L (3-33) Alkaline Phosphatase 68 U/L (35-104) 69 U/L (35-104) Total Creatine Kinase 75 U/L (26-140) Creatine Kinase MB < 1.5 ng/mL (< 3.8) Creatine Kinase MB Relative Index Troponin I < 0.30 ng/mL (<=0.30) Total Protein 6.9 g/dL (6.6-8.7) 7.3 g/dL (6.6-8.7) Albumin 3.4 g/dL (3.5-5.2) L 3.4 g/dL (3.5-5.2) L Globulin 3.5 g/dL 3.9 g/dL Albumin/Globulin Ratio 0.9 (1.0-2.7) L 0.8 (1.0-2.7) L Direct Bilirubin 0.3 mg/dL (0.1-0.3) Triglycerides Level 71 mg/dL (< 150) Cholesterol Level 103 mg/dL (< 200) LDL Cholesterol 34 mg/dL (60-99) L HDL Cholesterol 55 mg/dL (> 60) Cholesterol/HDL Ratio 1.9 (3.3-4.4) L Thyroid Stimulating Hormone (TSH) 1.150 uIU/mL (0.300-4.500) Height (Feet): 5 Height (Inches): 5.00 Weight (Pounds): 132 Medications Current Medications Medications (Trade) Dose Ordered Sig/Rancho Route PRN Reason Start Time Stop Time Status Last Admin Dose Admin Acetaminophen (Tylenol) 650 mg Q4H PRN ORAL fever 09/24/16 19:15 10/24/16 19:14 Al Hydroxide/Mg Hydroxide (Mylanta II) 30 ml Q6H PRN ORAL dyspepsia 09/24/16 19:15 10/24/16 19:14 Amlodipine Besylate (Norvasc) 10 mg DAILY ORAL 09/25/16 09:00 10/25/16 08:59 09/25/16 09:03 Clonidine HCl (Catapres) 0.1 mg DAILY ORAL 09/25/16 09:00 10/25/16 08:59 UNV Dextrose (Dextrose 50%) STAT PRN IV Hypoglycemia 09/24/16 19:15 10/24/16 19:14 Levetiracetam (Keppra) 500 mg Q12HR ORAL 09/24/16 21:00 10/24/16 20:59 09/25/16 09:03 Lorazepam (Ativan 2mg/ml 1ml) 0.5 mg Q4H PRN IV For Anxiety 09/24/16 19:15 10/01/16 19:14 Morphine Sulfate (Morphine Sulfate) 1 mg Q4H PRN IVP For Pain 09/24/16 19:15 10/01/16 19:14 Ondansetron HCl (Zofran) 4 mg Q6H PRN IVP Nausea & Vomiting 09/24/16 19:15 10/24/16 19:14 Polyethylene Glycol (Miralax) 17 gm HSPRN PRN ORAL Constipation 09/24/16 19:15 10/24/16 19:14 Sucralfate (Carafate) 1 gm TID ORAL 09/25/16 09:00 10/25/16 08:59 09/25/16 09:03 Zolpidem Tartrate (Ambien) 5 mg HSPRN PRN ORAL Insomnia 09/24/16 19:15 10/24/16 19:14 Assessment/Plan Problem List: (1) Symptomatic anemia ICD Codes: D64.9 - Anemia, unspecified SNOMED: 405108042 (2) Chemotherapy adverse reaction ICD Codes: T45.1X5A - Adverse effect of antineoplastic and immunosuppressive drugs, initial encounter SNOMED: 472795447 (3) Metastatic adenocarcinoma ICD Codes: C80.1 - Malignant (primary) neoplasm, unspecified SNOMED: 0629769, 294152261 Assessment/Plan s/p prbc asymptoamtic OK to dc to the care of oncDELLA Chavez September 25, 2016 12:21
--- NOTE | 2016-09-25 16:42 | Cardiology Report ---
APPROVED REPORT EKG Measurement Heart [id number] Normal sinus rhythm Nonspecific T wave abnormality Abnormal ECG
--- NOTE | 2016-09-25 22:53 | Consultation ---
Consult Note Consult Note DATE OF CONSULTATION: 09/25/16 HEMATOLOGY/ONCOLOGY CONSULTATION REQUESTING PHYSICIAN: Swati Nash M.D. REASON FOR CONSULTATION: Evaluation of severe thrombocytopenia/anemia IDENTIFICATION: Dear Dr. Swati Nash, Mrs. Patti Cantrell is a pleasant 66-year-old female with past medical history significant for breast cancer status post chemotherapy. Her tumor has improved since initiation of chemotherapy. She is getting carbo-taxol at this time and has done very well. She has been getting decreased dose of chemotherapy, however, at this time, she came to the office with weakness and therefore, she was sent to the ER for further evaluation given her severe thrombocytopenia as well as anemia and leukopenia. She was noted in the Er to have a decreased hgb of 6.4 and hematology service was consulted for further evaluation and care. Dr. Nash consulted me for further evaluation and treatment. PAST MEDICAL HISTORY: Breast cancer metastatic, hypertension. PAST SURGICAL HISTORY: None noted. Breast biopsy. ALLERGIES: citrus and derivatives SOCIAL HISTORY: No alcohol, tobacco, or illicit drug use. FAMILY HISTORY: Noncontributory . REVIEW OF SYSTEMS: Constitutional: No fever, chills, or night sweats. Skin: No rashes, lumps, or itching. HEENT: No headache or vision changes. Breasts: No lumps, pain, or discharge. Pulmonary: No cough, sputum, or shortness of breath. Cardiovascular: No chest pain, tightness, or palpitations. Gastrointestinal: No nausea, vomiting, or diarrhea. : No dysuria, frequency, or urgency. Musculoskeletal: No joint swelling, muscle pain, or trauma. PHYSICAL EXAMINATION: GENERAL: The patient is in no acute distress. VITAL SIGNS: stable PULMONARY: Decreased breath sounds. CARDIOVASCULAR: Regular rate and rhythm. No S3 or S4. ABDOMEN: Soft, nontender, and nondistended. EXTREMITIES: A 1+ edema. Laboratory Tests Test 09/25/16 06:30 White Blood Count 4.1 K/UL (4.8-10.8) L Red Blood Count 2.63 M/UL (4.20-5.40) L Hemoglobin 9.4 G/DL (12.0-16.0) #L Hematocrit 26.9 % (37.0-47.0) #L Mean Corpuscular Volume 103 FL (80-99) #H Mean Corpuscular Hemoglobin 35.7 PG (27.0-31.0) H Mean Corpuscular Hemoglobin Concent 34.9 G/DL (32.0-36.0) Red Cell Distribution Width 24.4 % (11.6-14.8) H Platelet Count 106 K/UL (150-450) L Mean Platelet Volume 8.1 FL (6.5-10.1) Neutrophils (%) (Auto) % (45.0-75.0) Lymphocytes (%) (Auto) % (20.0-45.0) Monocytes (%) (Auto) % (1.0-10.0) Eosinophils (%) (Auto) % (0.0-3.0) Basophils (%) (Auto) % (0.0-2.0) Differential Total Cells Counted 100 Neutrophils % (Manual) 53 % (45-75) Lymphocytes % (Manual) 31 % (20-45) Monocytes % (Manual) 16 % (1-10) H Eosinophils % (Manual) 0 % (0-3) Basophils % (Manual) 0 % (0-2) Band Neutrophils 0 % (0-8) Platelet Estimate Decreased L Platelet Morphology Normal Hypochromasia 1+ Anisocytosis 2+ Macrocytosis 1+ Sodium Level 141 mEQ/L (135-145) Potassium Level 3.5 mEQ/L (3.4-4.9) Chloride Level 103 mEQ/L (98-107) Carbon Dioxide Level 24 mEQ/L (20-30) Anion Gap 14 (5-15) Blood Urea Nitrogen 6 mg/dL (7-23) L Creatinine 0.5 mg/dL (0.5-0.9) Estimat Glomerular Filtration Rate > 60 mL/min (>60) Glucose Level 107 mg/dL (74-106) H Calcium Level 9.4 mg/dL (8.6-10.2) Total Bilirubin 1.1 mg/dL (0.0-1.2) Direct Bilirubin 0.3 mg/dL (0.1-0.3) Aspartate Amino Transf (AST/SGOT) 26 U/L (5-40) Alanine Aminotransferase (ALT/SGPT) 12 U/L (3-33) Alkaline Phosphatase 69 U/L (35-104) Total Protein 7.3 g/dL (6.6-8.7) Albumin 3.4 g/dL (3.5-5.2) L Globulin 3.9 g/dL Albumin/Globulin Ratio 0.8 (1.0-2.7) L Triglycerides Level 71 mg/dL (< 150) Cholesterol Level 103 mg/dL (< 200) LDL Cholesterol 34 mg/dL (60-99) L HDL Cholesterol 55 mg/dL (> 60) Cholesterol/HDL Ratio 1.9 (3.3-4.4) L Thyroid Stimulating Hormone (TSH) 1.150 uIU/mL (0.300-4.500) ASSESSMENT: 1. Severe anemia 2/2 recently administered chemo (have dose-reduced chemo as well) 2. Severe pancytopenia. She has had recent administration of chemotherapy with and this has been dose-reduced. 3. Breast cancer metastatic has been on treatment for over 2 years, have improved her tumor burden, imaging has improved, continuing to monitor with PET scan 4. Hypertension. 5. History of stroke. 6. History of seizures and headache. 7. History of weakness. RECOMMENDATIONS: 1. Monitor counts. 2. Pending ferritin 3. Continue pain control 4. Transfuse to hgb goal >7, have transfused and hgb has improved 5. Platelets goal of above 20k 6. Peripheral smear is wnl 7. The patient shows no evidence of hemolysis. 8. Follow up Pulmonary Critical Care Service Greatly appreciate consultation Sp Up. September 25, 2016 22:53
--- NOTE | 2016-09-26 15:41 | Discharge Summary ---
Discharge Summary Hospital Course Date of Admission September 24, 2016 at 18:05 Date of Discharge September 25, 2016 at 14:15 Admitting Diagnosis symptomatic anemia HPI Patti Cantrell is a 66 year old female who was admitted on September 24, 2016 at 18:05 for Symptomatic Anemia Hospital Course [id number] Discharge Discharge Disposition Patient was discharged to Home (01) Discharge Diagnoses: Janet Ramirez NP Sep 26, 2016 15:41
--- NOTE | 2016-09-27 01:00 | Discharge Summary 2 SIG ---
DATE OF ADMISSION: 09/24/2016 DATE OF DISCHARGE: 09/25/2016 CONSULTANTS: Sp Up M.D. BRIEF HOSPITAL COURSE: The patient is a 66-year-old female, who is under chemotherapy for breast CA. She was told by her stock checkerer that she is anemic and required blood transfusion. The patient has been getting weaker than usual over the past several days. On evaluation at ED, hemoglobin was 6 and hematocrit 18. The patient was admitted for further care. Dr. Up was consulted. The patient had severe thrombocytopenia and anemia. She was given two units packed RBC blood transfusion. Chest x-ray done showed no acute process. Blood levels improved and the patient was discharged home to follow up as outpatient. FINAL DIAGNOSES: 1. Acute symptomatic anemia requiring blood transfusion. 2. Chemotherapy. 3. Metastatic adenocarcinoma. 4. Severe anemia secondary to recently administered chemotherapy. 5. Severe pancytopenia. 6. Metastatic breast cancer. 7. Hypertension. Swati Nash M.D. I have been assigned to dictate discharge summary on this account and I was not involved in the patient's management. Janet Ramirez N.P. DR: TAD JOB#: [id number] CC:
--- NOTE | 2016-09-27 15:39 | Diagnostic Imaging Report ---
APPROVED REPORT CPT Code: 80672 Present Symptoms Lower Extremity Pain: Bilateral BILATERAL: Imaging reveals a patent deep venous system bilaterally. There is no evidence of thrombus within the femoral, popliteal or tibial segments. The greater saphenous veins are also within normal limits. Doppler indicates normal spontaneous flow within these segments.
== END 2016-09-25 14:15 | disposition home or self-care (01) | DRG 809 ==
LOC: EMR 16:55 → EDBEDREQ 18:00 → 3E 18:05 → EDBEDREQ 20:07
PROC: 30233N1 Transfusion of Nonautologous Red Blood Cells into Peripheral Vein, Percutaneous Approach (ICD-10-PCS; principal; 2016-09-24)
DX: D61.810 Antineoplastic chemotherapy induced pancytopenia (principal); C79.9 Secondary malignant neoplasm of unspecified site; D69.6 Thrombocytopenia, unspecified; T45.1X5A Adverse effect of antineoplastic and immunosuppressive drugs, initial encounter; C50.919 Malignant neoplasm of unspecified site of unspecified female breast; Z79.899 Other long term (current) drug therapy; I10 Essential (primary) hypertension; Z86.73 Personal history of transient ischemic attack (TIA), and cerebral infarction without residual deficits
CPT/HCPCS: 36415; 71010; 80053; 80061; 80299; 82248; 82550; 82553; 84443; 84484; 85007; 85025; 85610; 85730; 86850; 86900; 86901; 86904; 86920; 93005; 93970